=== PATIENT | male | born 1945 | race American Indian/Alaskan Native ===

== ENCOUNTER 2018-06-15 14:36 | Inpatient (IN) | payer MEDICARE ==
[2018-06-13 14:51] VITALS: BMI 32.3
[~2018-06-15 14:36] MED LIST: (Novolin R) Insulin Human Regular 100 units/ml vial SC SCH; Dextrose 50% SYRINGE Inj (50 ml) IV PRN; Glucagon Recombinant 1 mg Inj IM PRN
--- NOTE | 2018-06-19 14:55 | CP.PCM.HP ---
<Ramona Rand - Last Filed: 06/19/18 17:36> History of Present Illness - History of Present Illness History of Present Illness: History and Physical - Hospitalist Service Patient is a 72 year old male with past medical history of ESRD on HD MWF, diabetes mellitus, hypertension who presented to the hospital for admission from [facility] for dialysis placement. Patient was admitted to [facility] on June 10 for altered mental status in the setting of uremia, hypertensive urgency and hyperkalemia. Patient also was found to have a lacunar stroke. Patient was started on HD during his admission and will need hemodialysis placement. Currently he is doing well, offers no complaints at this time. Denies headaches, dizziness, cp, palpitations, sob, abdominal pain, urinary symptoms, changes in bowel habits. PMD: Dr Renny Parker ([phone]) Allergies: NKDA Medications: ASA 81mg, Lipitor 40mg PO HS, Calcitrol 0.25mcg daily, Calcium carbonate 500mg TID, Carvedilol 25mg PO BID, Lantus 6 units HS, Norvasc 10mg Medical History: ESRD on HD, CVA, Diabetes Mellitus, Prostate cancer s/p radiation, hypertension Surgical History: Left AVF placement in 2016 Social History: Denies alcohol, tobacco, drug use Family History: Diabetes Mellitus Present on Admission - Present on Admission Any Indicators Present on Admission: No Past Patient History - Past Medical History & Family History Past Medical History?: Yes - Past Social History Smoking Status: Former Smoker - CARDIAC Hx Cardiac Disorders: Yes Hx Hypertension: Yes - PULMONARY Hx Respiratory Disorders: No - NEUROLOGICAL Hx Neurological Disorder: No - HEENT Hx HEENT Problems: Yes Other/Comment: HX: LASER SURGERY BILAT. - RENAL Hx Chronic Kidney Disease: Yes Hx Renal Failure: Yes - ENDOCRINE/METABOLIC Hx Endocrine Disorders: Yes Hx Diabetes Mellitus Type 2: Yes - HEMATOLOGICAL/ONCOLOGICAL Hx Blood Disorders: Yes Hx Cancer: Yes (PROSTATE -RADIATION TX. DONE) - INTEGUMENTARY Hx Dermatological Problems: No - MUSCULOSKELETAL/RHEUMATOLOGICAL Hx Musculoskeletal Disorders: No - GASTROINTESTINAL Hx Gastrointestinal Disorders: No - GENITOURINARY/GYNECOLOGICAL Hx Genitourinary Disorders: Yes Hx Prostate Cancer: Yes Hx Prostate Problems: Yes - PSYCHIATRIC Hx Psychophysiologic Disorder: No - SURGICAL HISTORY Hx Surgeries: Yes Hx Eye Surgery: Yes (LASER BILAT.) - ANESTHESIA Hx Anesthesia: Yes Hx Anesthesia Reactions: No Hx Malignant Hyperthermia: No Meds Allergies/Adverse Reactions: Allergies Allergy/AdvReac Type Severity Reaction Status Date / Time No Known Allergies Allergy Verified 01/20/16 09:50 Physical Exam - Constitutional Appears: Well, Non-toxic, Toxic - Head Exam Head Exam: ATRAUMATIC, NORMAL INSPECTION - Eye Exam Eye Exam: EOMI, Normal appearance Pupil Exam: NORMAL ACCOMODATION - ENT Exam ENT Exam: Mucous Membranes Moist - Respiratory Exam Respiratory Exam: Clear to Auscultation Bilateral, NORMAL BREATHING PATTERN. absent: Rales, Rhonchi, Wheezes - Cardiovascular Exam Cardiovascular Exam: REGULAR RHYTHM, +S1, +S2 - GI/Abdominal Exam GI & Abdominal Exam: Normal Bowel Sounds, Soft. absent: Distended, Guarding, Rebound, Rigid, Tenderness - Extremities Exam Extremities exam: Positive for: pedal pulses present. Negative for: calf tenderness Additional comments: Lower extremities: No clubbing, cyanosis, edema; pedal pulses intact bilaterally +Left AVF with positive thrill and bruit, sensation intact throughout, distal pulses intact - Neurological Exam Neurological exam: Alert, Oriented x3 - Psychiatric Exam Psychiatric exam: Normal Affect, Normal Mood - Skin Skin Exam: Dry, Normal Color, Warm Assessment & Plan - Assessment and Plan (Free Text) Assessment: A/P: Patient is a 72 year old male with past medical history of diabetes mellitus, ESRD on HD MWF, hypertension who was transferred from [facility] for dialysis placement. ESRD on HD -Stable, afebrile -Patient to resume HD on MWF schedule -Nephrology on consult, Dr Tatum, jonas appreciated -Renal diet -Continue calcitrol 0.25mcg PO daily -Calcium carbonate 500mg PO TID -Measure daily weights, monitor intake/output -Renally dose medications Acute CVA -Patient found to have small lacunar infarct involving the left thalamic pulvinar nucleus seen on MRI -TPA was not given due to unknown last known normal -Echo showed EF 60% and LVH -Continue ASA 81mg PO daily, Lipitor 40mg PO HS -Physical Therapy ordered -Out of bed with assistance -Neuro checks q4H Diabetes Mellitus, Type 2 -Patient currently on Lantus 6 units HS -Patient was previously on Glipizide at home which was stopped -Low Insulin sliding scale -Hypoglycemic protocol -Monitor accuchecks ACHS Hypertension -Carvedilol 25mg PO BID -Continue Norvasc 10mg PO daily Anemia -Last hgb was 7.8, asymptomatic -S/P IV iron infusion -Monitor serial CBCs GI/DVT ppx: -No GI ppx indicated at this time -Heparin 5000 SC Q12H If any questions regarding admission on [place], discharge papers are in patient chart Plan discussed with Ramona Mario DO PGY-2 <Victorina Rob - Last Filed: 06/19/18 18:23> Results - Vital Signs Recent Vital Signs: Last Vital Signs Temp Pulse Resp BP 129/77 06/19/18 18:08 Pulse Ox - Labs Labs: Laboratory Results - last 24 hr 06/19/18 16:39 POC Glucose (mg/dL) 229 H Attending/Attestation - Attestation I have personally seen and examined this patient.: Yes I have fully participated in the care of the patient.: Yes I have reviewed all pertinent clinical information: Yes Notes (Text): Seen and examined in his room 350. Spoke to the patient and his at bedside Denies pain,no nausea,no vomiting. Patient will be seen by DR Tatum's group for dialysis continue his meds coreg,asprin,Norvasc,calcitriol,Calcium carbonate ,lantus,Crestor and hep sq PT evaluation assessment and the plan discussed with the resident and I agree with the documentation
[2018-06-19] MEDS ORDERED: Dextrose 50% SYRINGE Inj (50 ml) IV PRN (15:14)
[2018-06-19] MEDS ORDERED: Glucagon Recombinant 1 mg Inj IM PRN (15:14)
[2018-06-19] MEDS: (Novolin R) Insulin Human Regular 100 units/ml vial SC SCH ×2 (17:00→21:34)
[2018-06-19] MEDS: (Lantus) Insulin Glargine, Recombinant SC SCH (22:00)
[2018-06-20 06:50] LABS: BASO # 0.1 K/uL (0.0-0.2); BASO % 1.7 % (0.0-2.0); EOS # 0.1 K/uL (0.0-0.7); HEMOGLOBIN 7.8 g/dL (12.0-18.0); LYMPH # 0.5 K/uL (1.0-4.3); MEAN CELL VOLUME 91.1 fL (80.0-94.0); MEAN CORPUSCULAR HEMOGLOBIN 30.5 pg (27.0-31.0); MEAN CORPUSCULAR HGB CONC 33.5 g/dL (33.0-37.0); MONO # 0.5 K/uL (0.0-0.8); MONO % 13.1 % (0.0-10.0); NEUT % 71.2 % (50.0-75.0); NRBC % 0.2 % (0.0-2.0); RBC 2.55 Mil/uL (4.40-5.90); RED CELL DISTRIBUTION WIDTH 15.8 % (11.5-14.5); WHITE BLOOD COUNT 4.2 K/uL (4.8-10.8)
[2018-06-20 07:14] LABS: ALB/GLOB RATIO 1.2 (1.0-2.1); ALBUMIN 3.4 g/dL (3.5-5.0); CALCIUM 8.1 mg/dl (8.6-10.4)
[2018-06-20] MEDS: (Novolin R) Insulin Human Regular 100 units/ml vial SC SCH ×4 (07:32→23:22)
--- NOTE | 2018-06-20 13:00 | CP.PCM.CON ---
History of Present Illness - History of Present Illness History of Present Illness: Patient is a 72 year old male with past medical history of ESRD on HD MWF, diabetes mellitus, hypertension who presented to the hospital for admission from [facility] for dialysis placement. Patient was adm itted to [facility] on June 10 for altered mental status in the setting of uremia, hypertensive urgency and hyperkalemia. Patient also was found to have a lacunar stroke. Patient was started on HD during his admission and will need hemodialysis placement. Currently he is doing well, offers no complaints at this time. Denies headaches, dizziness, cp, palpitations, sob, abdominal pain, urinary symptoms, changes in bowel habits. PMD: Dr Renny Parker ([phone]) Allergies: NKDA Medications: ASA 81mg, Lipitor 40mg PO HS, Calcitrol 0.25mcg daily, Calcium carbonate 500mg TID, Carvedilol 25mg PO BID, Lantus 6 units HS, Norvasc 10mg Medical History: ESRD on HD, CVA, Diabetes Mellitus, Prostate cancer s/p radiation, hypertension Surgical History: Left AVF placement in 2016 Social History: Denies alcohol, tobacco, drug use Family History: Diabetes Mellitus; no CKD Review of Systems - Constitutional Constitutional: Fatigue, Weakness - EENT Eyes: Blurred Vision Ears: absent: As Per HPI, Decreased Hearing, Ear Discharge, Ear Pain, Tinnitus, Abnormal Hearing, Disequilibrium, Dizziness, Other Nose/Mouth/Throat: absent: As Per HPI, Epistaxis, Nasal Congestion, Nasal Discharge, Nasal Obstruction, Nasal Trauma, Nose Pain, Post Nasal Drip, Sinus Pain, Sinus Pressure, Bleeding Gums, Change in Voice, Dental Pain, Dry Mouth, Dysphagia, Halitosis, Hoarsness, Lip Swelling, Mouth Lesions, Mouth Pain, Odynophagia, Sore Throat, Throat Swelling, Tongue Swelling, Facial Pain, Neck Pain, Neck Mass, Other - Cardiovascular Cardiovascular: Dyspnea on Exertion - Respiratory Respiratory: absent: As Per HPI, Cough, Dyspnea, Hemoptysis, Dyspnea on Exert ion, Wheezing, Snoring, Stridor, Pain on Inspiration, Chest Congestion, Excessive Mucous Production, Change in Mucous Color, Pain with Coughing, Other - Gastrointestinal Gastrointestinal: Nausea - Genitourinary Genitourinary: As Per HPI - Neurological Neurological: Weakness Past Patient History - Past Medical History & Family History Past Medical History?: Yes Past Family History: Reviewed and not pertinent - Past Social History Smoking Status: Former Smoker Chewing Tobacco Use: No Cigar Use: No Alcohol: None Drugs: Denies Home Situation {Lives}: With Family - CARDIAC Hx Cardiac Disorders: Yes Hx Hypertension: Yes - PULMONARY Hx Respiratory Disorders: No - NEUROLOGICAL Hx Neurological Disorder: No - HEENT Hx HEENT Problems: Yes Other/Comment: HX: LASER SURGERY BILAT. - RENAL Hx Renal Failure: Yes - ENDOCRINE/METABOLIC Hx Diabetes Mellitus Type 2: Yes - HEMATOLOGICAL/ONCOLOGICAL Hx Blood Disorders: Yes Hx Cancer: Yes (PROSTATE -RADIATION TX. DONE) - INTEGUMENTARY Hx Dermatological Problems: No - MUSCULOSKELETAL/RHEUMATOLOGICAL Hx Musculoskeletal Disorders: No Hx Falls: No - GASTROINTESTINAL Hx Gastrointestinal Disorders: No - GENITOURINARY/GYNECOLOGICAL Hx Genitourinary Disorders: Yes Hx Prostate Cancer: Yes Hx Prostate Problems: Yes - PSYCHIATRIC Hx Psychophysiologic Disorder: No Hx Substance Use: No - SURGICAL HISTORY Hx Surgeries: Yes Hx Eye Surgery: Yes (LASER BILAT.) - ANESTHESIA Hx Anesthesia: Yes Hx Anesthesia Reactions: No Hx Malignant Hyperthermia: No Has any member of the family had a problem w/ anesthesia?: No Meds Allergies/Adverse Reactions: Allergies Allergy/AdvReac Type Severity Reaction Status Date / Time No Known Allergies Allergy Verified 01/20/16 09:50 - Medications Medications: Current Medications Amlodipine Besylate (Norvasc) 10 mg PO DAILY [facility] Last Admin: 06/20/18 09:49 Dose: 10 mg Aspirin (Aspirin Chewable) 81 mg PO DAILY [facility] Last Admin: 06/20/18 09:48 Dose: 81 mg Calcitriol (Rocaltrol) 0.25 mcg PO DAILY [facility] Last Admin: 06/20/18 09:48 Dose: 0.25 mcg Calcium Carbonate (Oscal) 500 mg PO TID [facility] Last Admin: 06/20/18 09:48 Dose: 500 mg Carvedilol (Coreg) 25 mg PO BID [facility] Last Admin: 06/20/18 09:49 Dose: 25 mg Dextrose (Dextrose 50% Inj) 0 ml IV STAT PRN; Protocol PRN Reason: Hypoglycemia Protocol Dextrose (Glutose 15) 0 gm PO ONCE PRN; Protocol PRN Reason: Hypoglycemia Protocol Glucagon (Glucagen Diagnostic Kit) 0 mg IM STAT PRN; Protocol PRN Reason: Hypoglycemia Protocol Heparin Sodium (Porcine) (Heparin) 5,000 units SC Q12 [facility] Last Admin: 06/20/18 09:49 Dose: 5,000 units Dextrose (Dextrose 5% In Water 1000 Ml) 1,000 mls @ 0 mls/hr IV .Q0M PRN; Protocol PRN Reason: Hypoglycemia Protocol Influenza Virus Vaccine (Fluzone Quad [id number]) 60 mcg IM .ONCE ONE Stop: 06/22/18 10:01 Insulin Glargine (Lantus) 6 unit SC [facility] Last Admin: 06/19/18 22:00 Dose: 6 units Insulin Human Regular (Novolin R) 0 unit SC ACHS [facility]; Protocol Last Admin: 06/20/18 12:00 Dose: 2 units Pneumococcal Polyvalent Vaccine (Pneumovax 23 Vaccine) 0.5 ml IM .ONCE ONE Stop: 06/22/18 10:01 Rosuvastatin Calcium (Crestor) 5 mg PO HS [facility] Last Admin: 06/19/18 22:00 Dose: 5 mg Tamsulosin HCl (Flomax) 0.4 mg PO DAILY [facility] Last Admin: 06/20/18 09:49 Dose: 0.4 mg Physical Exam - Constitutional Appears: No Acute Distress, Chronically Ill - Head Exam Head Exam: ATRAUMATIC, NORMAL INSPECTION - Eye Exam Eye Exam: EOMI, Normal appearance - Neck Exam Neck exam: Positive for: Normal Inspection. Negative for: Tenderness - Respiratory Exam Respiratory Exam: Clear to Auscultation Bilateral, NORMAL BREATHING PATTERN - Cardiovascular Exam Cardiovascular Exam: REGULAR RHYTHM, +S1 - GI/Abdominal Exam GI & Abdominal Exam: Soft. absent: Tenderness - Extremities Exam Extremities exam: Positive for: normal inspection. Negative for: tenderness - Neurological Exam Neurological exam: Alert, Oriented x3 - Skin Skin Exam: Dry, Warm Results - Vital Signs Recent Vital Signs: Last Vital Signs Temp 97.9 F 06/20/18 08:00 Pulse 75 06/20/18 08:00 Resp 20 06/20/18 08:00 BP 146/79 06/20/18 09:49 Pulse Ox 97 06/20/18 08:00 - Labs Result Diagrams: 06/20/18 06:34 06/20/18 06:34 Labs: Laboratory Results - last 24 hr 06/19/18 06/19/18 06/20/18 16:39 21:22 06:34 WBC 4.2 L RBC 2.55 L Hgb 7.8 L D Hct 23.2 L MCV 91.1 D MCH 30.5 MCHC 33.5 RDW 15.8 H Plt Count 183 MPV 8.0 Neut % (Auto) 71.2 Lymph % (Auto) 12.0 L Donley % (Auto) 13.1 H Eos % (Auto) 2.0 Baso % (Auto) 1.7 Neut # (Auto) 3.0 Lymph # (Auto) 0.5 L Donley # (Auto) 0.5 Eos # (Auto) 0.1 Baso # (Auto) 0.1 Sodium Potassium Chloride Carbon Dioxide Anion Gap BUN Creatinine Est GFR ( Amer) Est GFR (Non-Af Amer) POC Glucose (mg/dL) 229 H 315 H Random Glucose Calcium Phosphorus Magnesium Total Bilirubin AST ALT Alkaline Phosphatase Total Protein Albumin Globulin Albumin/Globulin Ratio 06/20/18 06/20/18 06/20/18 06:34 07:11 11:24 WBC RBC Hgb Hct MCV MCH MCHC RDW Plt Count MPV Neut % (Auto) Lymph % (Auto) Donley % (Auto) Eos % (Auto) Baso % (Auto) Neut # (Auto) Lymph # (Auto) Donley # (Auto) Eos # (Auto) Baso # (Auto) Sodium 135 Potassium 5.1 Chloride 94 L Carbon Dioxide 32 H Anion Gap 14 BUN 50 H Creatinine 7.9 H* Est GFR ( Amer) 8 Est GFR (Non-Af Amer) 7 POC Glucose (mg/dL) 150 H 235 H Random Glucose 155 H D Calcium 8.1 L Phosphorus 4.1 Magnesium 2.3 Total Bilirubin 0.4 AST 25 ALT 41 Alkaline Phosphatase 33 L Total Protein 6.2 L Albumin 3.4 L Globulin 2.9 Albumin/Globulin Ratio 1.2 Assessment & Plan (1) End stage renal disease Status: Acute (2) Type 2 diabetes mellitus with diabetic nephropathy Status: Acute (3) Hypertensive chronic kidney disease with stage 5 chronic kidney disease or end stage renal disease Status: Acute (4) CVA (cerebral vascular accident) Status: Acute (5) Prostate CA Status: Acute - Assessment and Plan (Free Text) Plan: Dialysis to be scheduled Check hep panel will need HD placement
--- NOTE | 2018-06-20 13:44 | CP.PCM.PN ---
Subjective - Date & Time of Evaluation Date of Evaluation: 06/20/18 Time of Evaluation: 13:41 - Subjective Subjective: Elizabeth Claudio PGY1 Progress note for Dr. Rob Pt was examined at bedside this morning. He has no complaints. He denies heada mary, chest pain, shortness of breath, abdominal pain, nausea, vomiting, diarrhea, dysuria. Objective - Vital Signs/Intake and Output Vital Signs (last 24 hours): Temp Pulse Resp BP Pulse Ox 97.9 F 75 20 146/79 97 06/20/18 08:00 06/20/18 08:00 06/20/18 08:00 06/20/18 09:49 06/20/18 08:00 Intake and Output: 06/20/18 06/20/18 06:59 18:59 Intake Total 100 Output Total 100 Balance 0 - Medications Medications: Current Medications Amlodipine Besylate (Norvasc) 10 mg PO DAILY [facility] Last Admin: 06/20/18 09:49 Dose: 10 mg Aspirin (Aspirin Chewable) 81 mg PO DAILY [facility] Last Admin: 06/20/18 09:48 Dose: 81 mg Calcitriol (Rocaltrol) 0.25 mcg PO DAILY [facility] Last Admin: 06/20/18 09:48 Dose: 0.25 mcg Calcium Carbonate (Oscal) 500 mg PO TID [facility] Last Admin: 06/20/18 09:48 Dose: 500 mg Carvedilol (Coreg) 25 mg PO BID [facility] Last Admin: 06/20/18 09:49 Dose: 25 mg Dextrose (Dextrose 50% Inj) 0 ml IV STAT PRN; Protocol PRN Reason: Hypoglycemia Protocol Dextrose (Glutose 15) 0 gm PO ONCE PRN; Protocol PRN Reason: Hypoglycemia Protocol Epoetin Rocael (Procrit) 10,000 unit IV MWF [facility] Glucagon (Glucagen Diagnostic Kit) 0 mg IM STAT PRN; Protocol PRN Reason: Hypoglycemia Protocol Heparin Sodium (Porcine) (Heparin) 5,000 units SC Q12 [facility] Last Admin: 06/20/18 09:49 Dose: 5,000 units Dextrose (Dextrose 5% In Water 1000 Ml) 1,000 mls @ 0 mls/hr IV .Q0M PRN; Protocol PRN Reason: Hypoglycemia Protocol Influenza Virus Vaccine (Fluzone Quad [id number]) 60 mcg IM .ONCE ONE Stop: 06/22/18 10:01 Insulin Glargine (Lantus) 6 unit SC [facility] Last Admin: 06/19/18 22:00 Dose: 6 units Insulin Human Regular (Novolin R) 0 unit SC [facility]; Protocol Last Admin: 06/20/18 12:00 Dose: 2 units Pneumococcal Polyvalent Vaccine (Pneumovax 23 Vaccine) 0.5 ml IM .ONCE ONE Stop: 06/22/18 10:01 Rosuvastatin Calcium (Crestor) 5 mg PO [facility] Last Admin: 06/19/18 22:00 Dose: 5 mg Tamsulosin HCl (Flomax) 0.4 mg PO DAILY [facility] Last Admin: 06/20/18 09:49 Dose: 0.4 mg - Labs Labs: 06/20/18 06:34 06/20/18 06:34 - Additional Findings Additional findings: - Constitutional Appears: Well, Non-toxic, Toxic - Head Exam Head Exam: ATRAUMATIC, NORMAL INSPECTION - Eye Exam Eye Exam: EOMI, Normal appearance Pupil Exam: NORMAL ACCOMODATION - ENT Exam ENT Exam: Mucous Membranes Moist - Respiratory Exam Respiratory Exam: Clear to Auscultation Bilateral, NORMAL BREATHING PATTERN. absent: Rales, Rhonchi, Wheezes - Cardiovascular Exam Cardiovascular Exam: REGULAR RHYTHM, +S1, +S2 - GI/Abdominal Exam GI & Abdominal Exam: Normal Bowel Sounds, Soft. absent: Distended, Guarding, Re bound, Rigid, Tenderness - Extremities Exam Extremities exam: Positive for: pedal pulses present. Negative for: calf tenderness Additional comments: b/l LUE: No clubbing, cyanosis, edema LUE: L AVF with positive thrill and bruit - Neurological Exam Neurological exam: Alert, Oriented x3 - Psychiatric Exam Psychiatric exam: Normal Affect, Normal Mood - Skin Skin Exam: Dry, Normal Color, Warm Assessment and Plan - Assessment and Plan (Free Text) Assessment: 72yo M with PMH of diabetes mellitus, ESRD on HD MWF, hypertension who was transferred from [facility] for dialysis placement. Pt consented for HD. Plan: ESRD on HD - Patient to resume HD on MWF schedule, consented - calcitrol 0.25mcg PO daily - Calcium carbonate 500mg PO TID - I/Os, daily weights - awaiting dialysis placement - Nephrology consulted, [facility] Acute CVA - small lacunar infarct involving the left thalamic pulvinar nucleus seen on MRI - TPA was not given due to unknown last known normal - Echo: EF 60% and LVH - ASA 81mg PO daily - Crestor 5mg PO HS - Out of bed with assistance - Neuro checks q4H - PT DM2 - Lantus 6 units HS - Low Insulin sliding scale - Hypoglycemic protocol - accuchecks ACHS HTN - Carvedilol 25mg PO BID - Norvasc 10mg PO daily Anemia - Hb 7.8, asymptomatic - S/P IV iron infusion - continue to monitor PPX: GI: not indicated at this time DVT: Heparin 5000 SC Q12H Renal Diet Dispo: consented for HD, to receive session today. Awaiting outpatient HD placement. Plan discussed with Dr Rob
[2018-06-20 16:22] LABS: HEPATITIS B SURFACE AG Negative (NEGATIVE)
[2018-06-20 16:28] LABS: HEPATITIS B CORE AB NEGATIVE (NEGATIVE)
[2018-06-20] MEDS: Epoetin Alfa 10,000 unit/ml Dialysis IV SCH (16:37)
[2018-06-20] MEDS: (Lantus) Insulin Glargine, Recombinant SC SCH (21:32)
--- NOTE | 2018-06-21 06:14 | CP.PCM.PN ---
Subjective - Date & Time of Evaluation Date of Evaluation: 06/21/18 Time of Evaluation: 06:45 - Subjective Subjective: PGY-1 Medicine Progress Note for Dr. Rob Patient was seen and examined with at bedside in no acute distress. Nurse reports no overnight events. Patient has no new complaints. Feels as though his speech is slowly improving. Denies chest pain, palpitations, shortness of breath, abdominal pain, nausea, vomiting, constipation, diarrhea. Objective - Vital Signs/Intake and Output Vital Signs (last 24 hours): Temp Pulse Resp BP Pulse Ox 98.3 F 80 20 147/82 95 06/20/18 23:05 06/20/18 23:05 06/20/18 23:05 06/20/18 23:05 06/20/18 23:05 Intake and Output: 06/20/18 06/21/18 18:59 06:59 Intake Total 100 Output Total 100 Balance 0 - Medications Medications: Current Medications Amlodipine Besylate (Norvasc) 10 mg PO DAILY [facility] Last Admin: 06/20/18 09:49 Dose: 10 mg Aspirin (Aspirin Chewable) 81 mg PO DAILY [facility] Last Admin: 06/20/18 09:48 Dose: 81 mg Calcitriol (Rocaltrol) 0.25 mcg PO DAILY [facility] Last Admin: 06/20/18 09:48 Dose: 0.25 mcg Calcium Carbonate (Oscal) 500 mg PO TID [facility] Last Admin: 06/20/18 19:44 Dose: 500 mg Carvedilol (Coreg) 25 mg PO BID [facility] Last Admin: 06/20/18 19:44 Dose: 25 mg Dextrose (Dextrose 50% Inj) 0 ml IV STAT PRN; Protocol PRN Reason: Hypoglycemia Protocol Dextrose (Glutose 15) 0 gm PO ONCE PRN; Protocol PRN Reason: Hypoglycemia Protocol Epoetin Rcoael (Procrit) 10,000 unit IV MWF [facility] Last Admin: 06/20/18 16:37 Dose: 10,000 unit Glucagon (Glucagen Diagnostic Kit) 0 mg IM STAT PRN; Protocol PRN Reason: Hypoglycemia Protocol Heparin Sodium (Porcine) (Heparin) 5,000 units SC Q12 [facility] Last Admin: 06/20/18 21:32 Dose: 5,000 units Dextrose (Dextrose 5% In Water 1000 Ml) 1,000 mls @ 0 mls/hr IV .Q0M PRN; Protocol PRN Reason: Hypoglycemia Protocol Influenza Virus Vaccine (Fluzone Quad [id number]) 60 mcg IM .ONCE ONE Stop: 06/22/18 10:01 Insulin Glargine (Lantus) 6 unit SC [facility] Last Admin: 06/20/18 21:32 Dose: 6 units Insulin Human Regular (Novolin R) 0 unit SC [facility]; Protocol Last Admin: 06/20/18 23:22 Dose: 2 units Pneumococcal Polyvalent Vaccine (Pneumovax 23 Vaccine) 0.5 ml IM .ONCE ONE Stop: 06/22/18 10:01 Rosuvastatin Calcium (Crestor) 5 mg PO [facility] Last Admin: 06/20/18 21:33 Dose: 5 mg Tamsulosin HCl (Flomax) 0.4 mg PO DAILY [facility] Last Admin: 06/20/18 09:49 Dose: 0.4 mg - Labs Labs: 06/20/18 06:34 06/20/18 06:34 - Constitutional Appears: Well, Non-toxic, No Acute Distress - Head Exam Head Exam: ATRAUMATIC, NORMOCEPHALIC - Eye Exam Eye Exam: EOMI, Normal appearance, PERRL Pupil Exam: NORMAL ACCOMODATION - ENT Exam ENT Exam: Mucous Membranes Moist - Respiratory Exam Respiratory Exam: Clear to Ausculation Bilateral, NORMAL BREATHING PATTERN. absent: Rales, Rhonchi, Wheezes - Cardiovascular Exam Cardiovascular Exam: REGULAR RHYTHM, +S1, +S2. absent: Gallop, Rubs, Murmur - GI/Abdominal Exam GI & Abdominal Exam: Soft, Normal Bowel Sounds. absent: Distended, Guarding, Tenderness - Extremities Exam Extremities Exam: Normal Capillary Refill. absent: Calf Tenderness Additional comments: peripheral pulses palpable bilaterally (radial, PT) AVF in L arm. Palpable thrill and audible bruit - Neurological Exam Neurological Exam: Alert, Awake, Oriented x3 - Psychiatric Exam Psychiatric exam: Normal Affect, Normal Mood - Skin Skin Exam: Normal Color, Warm Assessment and Plan - Assessment and Plan (Free Text) Assessment: 72yo M with PMH of diabetes mellitus, ESRD on HD MWF, hypertension who was transferred from [facility] for dialysis placement. Pt consented for HD. Plan: ESRD on HD - calcitrol 0.25mcg PO daily - Calcium carbonate 500mg PO TID - I/Os, daily weights - awaiting dialysis placement - Nephrology consulted, Dr Tatum- recs appreciated - restarted on MWF schedule Acute CVA - small lacunar infarct involving the left thalamic pulvinar nucleus seen on MRI - TPA was not given due to unknown last known normal - Echo: EF 60% and LVH - ASA 81mg PO daily - Crestor 5mg PO HS - Out of bed with assistance - Neuro checks q4H - PT DM2 - Lantus 6 units HS - Low Insulin sliding scale - Hypoglycemic protocol - accuchecks ACHS HTN - Carvedilol 25mg PO BID - Norvasc 10mg PO daily Anemia - Hb 7.8, asymptomatic - S/P IV iron infusion - continue to monitor PPX: GI: not indicated at this time DVT: Heparin 5000 SC Q12H Renal Diet Dispo: Awaiting outpatient HD placement.
[2018-06-21 07:13] LABS: BASO % 0.9 % (0.0-2.0); EOS # 0.1 K/uL (0.0-0.7); EOS % 1.8 % (0.0-4.0); HEMOGLOBIN 7.7 g/dL (12.0-18.0); LYMPH # 0.5 K/uL (1.0-4.3); LYMPH % 11.5 % (20.0-40.0); MEAN CELL VOLUME 91.7 fL (80.0-94.0); MEAN CORPUSCULAR HEMOGLOBIN 29.9 pg (27.0-31.0); MEAN CORPUSCULAR HGB CONC 32.6 g/dL (33.0-37.0); MEAN PLATELET VOLUME 7.9 fL (7.2-11.7); MONO # 0.6 K/uL (0.0-0.8); MONO % 13.8 % (0.0-10.0); NRBC % 0.1 % (0.0-2.0); RBC 2.59 Mil/uL (4.40-5.90); RED CELL DISTRIBUTION WIDTH 16.4 % (11.5-14.5); WHITE BLOOD COUNT 4.2 K/uL (4.8-10.8)
[2018-06-21 07:31] LABS: ALB/GLOB RATIO 1.2 (1.0-2.1); ALBUMIN 3.2 g/dL (3.5-5.0); CALCIUM 8.5 mg/dl (8.6-10.4)
[2018-06-21] MEDS: (Novolin R) Insulin Human Regular 100 units/ml vial SC SCH ×4 (07:39→21:33)
--- NOTE | 2018-06-21 09:51 | CP.PCM.PN ---
Subjective - Date & Time of Evaluation Date of Evaluation: 06/21/18 Time of Evaluation: 09:48 - Subjective Subjective: stable dialysis 06/20 HTN controlled TSat=7%; still anemic Ca , phos levels acceptable will need outpt dialysis placement- explained to patient Objective - Vital Signs/Intake and Output Vital Signs (last 24 hours): Temp Pulse Resp BP Pulse Ox 98.1 F 77 20 151/74 H 98 06/21/18 08:10 06/21/18 08:10 06/21/18 08:10 06/21/18 09:16 06/21/18 08:10 Intake and Output: 06/21/18 06/21/18 06:59 18:59 Intake Total 300 Balance 300 - Medications Medications: Current Medications Amlodipine Besylate (Norvasc) 10 mg PO DAILY [facility] Last Admin: 06/21/18 09:16 Dose: 10 mg Aspirin (Aspirin Chewable) 81 mg PO DAILY [facility] Last Admin: 06/21/18 09:16 Dose: 81 mg Calcitriol (Rocaltrol) 0.25 mcg PO DAILY [facility] Last Admin: 06/21/18 09:16 Dose: 0.25 mcg Calcium Carbonate (Oscal) 500 mg PO TID [facility] Last Admin: 06/21/18 09:16 Dose: 500 mg Carvedilol (Coreg) 25 mg PO BID [facility] Last Admin: 06/21/18 09:16 Dose: 25 mg Dextrose (Dextrose 50% Inj) 0 ml IV STAT PRN; Protocol PRN Reason: Hypoglycemia Protocol Dextrose (Glutose 15) 0 gm PO ONCE PRN; Protocol PRN Reason: Hypoglycemia Protocol Epoetin Rocael (Procrit) 10,000 unit IV MWF [facility] Last Admin: 06/20/18 16:37 Dose: 10,000 unit Glucagon (Glucagen Diagnostic Kit) 0 mg IM STAT PRN; Protocol PRN Reason: Hypoglycemia Protocol Heparin Sodium (Porcine) (Heparin) 5,000 units SC Q12 [facility] Last Admin: 06/21/18 09:16 Dose: 5,000 units Dextrose (Dextrose 5% In Water 1000 Ml) 1,000 mls @ 0 mls/hr IV .Q0M PRN; Protocol PRN Reason: Hypoglycemia Protocol Influenza Virus Vaccine (Fluzone Quad [id number]) 60 mcg IM .ONCE ONE Stop: 06/22/18 10:01 Insulin Glargine (Lantus) 6 unit SC [facility] Last Admin: 06/20/18 21:32 Dose: 6 units Insulin Human Regular (Novolin R) 0 unit SC [facility]; Protocol Last Admin: 06/21/18 07:39 Dose: Not Given Pneumococcal Polyvalent Vaccine (Pneumovax 23 Vaccine) 0.5 ml IM .ONCE ONE Stop: 06/22/18 10:01 Rosuvastatin Calcium (Crestor) 5 mg PO [facility] Last Admin: 06/20/18 21:33 Dose: 5 mg Tamsulosin HCl (Flomax) 0.4 mg PO DAILY [facility] Last Admin: 06/21/18 09:16 Dose: 0.4 mg - Labs Labs: 06/21/18 06:59 06/21/18 06:59 - Constitutional Appears: No Acute Distress, Chronically Ill - Head Exam Head Exam: ATRAUMATIC, NORMAL INSPECTION - Eye Exam Eye Exam: EOMI, Normal appearance - Neck Exam Neck Exam: Normal Inspection. absent: Tenderness - Respiratory Exam Respiratory Exam: Clear to Ausculation Bilateral, NORMAL BREATHING PATTERN - Cardiovascular Exam Cardiovascular Exam: REGULAR RHYTHM, +S1 - GI/Abdominal Exam GI & Abdominal Exam: Soft. absent: Tenderness - Extremities Exam Extremities Exam: Normal Inspection. absent: Tenderness - Neurological Exam Neurological Exam: Awake, CN II-XII Intact - Skin Skin Exam: Dry, Warm Assessment and Plan (1) End stage renal disease Status: Acute (2) Type 2 diabetes mellitus with diabetic nephropathy Status: Acute (3) Hypertensive chronic kidney disease with stage 5 chronic kidney disease or end stage renal disease Status: Acute (4) CVA (cerebral vascular accident) Status: Acute (5) Prostate CA Status: Acute - Assessment and Plan (Free Text) Plan: Dialysis MWF Change Ca to phoslo Re-add IV Fe Outpt HD placement
[2018-06-21] MEDS ORDERED: Ferric Sodium Gluconat Complex 62.5 mg/5 ml Vial IVPB SCH (10:00)
[2018-06-21] MEDS ORDERED: Ferric Sodium Gluconat Complex 125 MG in Sodium Chloride 0.9% 100 ML IVPB ONE (11:00)
[2018-06-21] MEDS: Ferric Sodium Gluconat Complex 125 MG in Sodium Chloride 0.9% 100 ML IVPB SCH (11:02)
[2018-06-21] MEDS ORDERED: POLYETHYLENE GLYCOL 3350 17 GM/Dose PACKET PO ONE (16:00)
[2018-06-21] MEDS: (Lantus) Insulin Glargine, Recombinant SC SCH (21:29)
--- NOTE | 2018-06-22 03:03 | CP.PCM.PN ---
<Luz Marina Baker Y - Last Filed: 06/22/18 03:01> Subjective - Date & Time of Evaluation Date of Evaluation: 06/22/18 Time of Evaluation: 06:45 - Subjective Subjective: PGY-1 Medicine Progress Note for Dr. Rob Patient was seen and examined with at bedside in no acute distress. Nurse reports no overnight events. Patient has no new complaints. Feels as though his speech is slowly improving. Denies chest pain, palpitations, shortness of breath, abdominal pain, nausea, vomiting, constipation, diarrhea. Objective - Vital Signs/Intake and Output Vital Signs (last 24 hours): Temp Pulse Resp BP Pulse Ox 98.4 F 61 20 130/60 95 06/21/18 23:12 06/21/18 23:12 06/21/18 23:12 06/21/18 23:12 06/21/18 23:12 Intake and Output: 06/21/18 06/22/18 18:59 06:59 Intake Total 300 Balance 300 - Medications Medications: Current Medications Amlodipine Besylate (Norvasc) 10 mg PO DAILY [facility] Last Admin: 06/21/18 09:16 Dose: 10 mg Aspirin (Aspirin Chewable) 81 mg PO DAILY [facility] Last Admin: 06/21/18 09:16 Dose: 81 mg Calcitriol (Rocaltrol) 0.25 mcg PO DAILY [facility] Last Admin: 06/21/18 09:16 Dose: 0.25 mcg Calcium Acetate (Phoslo) 667 mg PO TID [facility] Last Admin: 06/21/18 17:16 Dose: 667 mg Carvedilol (Coreg) 25 mg PO BID [facility] Last Admin: 06/21/18 17:16 Dose: 25 mg Dextrose (Dextrose 50% Inj) 0 ml IV STAT PRN; Protocol PRN Reason: Hypoglycemia Protocol Dextrose (Glutose 15) 0 gm PO ONCE PRN; Protocol PRN Reason: Hypoglycemia Protocol Epoetin Rocael (Procrit) 10,000 unit IV MWF [facility] Last Admin: 06/20/18 16:37 Dose: 10,000 unit Glucagon (Glucagen Diagnostic Kit) 0 mg IM STAT PRN; Protocol PRN Reason: Hypoglycemia Protocol Heparin Sodium (Porcine) (Heparin) 5,000 units SC Q12 [facility] Last Admin: 06/21/18 21:23 Dose: 5,000 units Dextrose (Dextrose 5% In Water 1000 Ml) 1,000 mls @ 0 mls/hr IV .Q0M PRN; Protocol PRN Reason: Hypoglycemia Protocol Ferric Sodium Gluconate Complex 125 mg/ Sodium Chloride 110 mls @ 100 mls/hr IVPB Q24H [facility] Stop: 06/29/18 11:01 Last Admin: 06/21/18 11:02 Dose: Not Given Influenza Virus Vaccine (Fluzone Quad [id number]) 60 mcg IM .ONCE ONE Stop: 06/22/18 10:01 Insulin Glargine (Lantus) [address] [facility] Last Admin: 06/21/18 21:29 Dose: 6 units Insulin Human Regular (Novolin R) 0 unit SC [facility]; Protocol Last Admin: 06/21/18 21:33 Dose: Not Given Pneumococcal Polyvalent Vaccine (Pneumovax 23 Vaccine) 0.5 ml IM .ONCE ONE Stop: 06/22/18 10:01 Rosuvastatin Calcium (Crestor) 5 mg PO HS [facility] Last Admin: 06/21/18 21:23 Dose: 5 mg Tamsulosin HCl (Flomax) 0.4 mg PO DAILY [facility] Last Admin: 06/21/18 09:16 Dose: 0.4 mg - Labs Labs: 06/21/18 06:59 06/21/18 06:59 - Constitutional Appears: Well, Non-toxic, No Acute Distress - Head Exam Head Exam: ATRAUMATIC, NORMOCEPHALIC - Eye Exam Eye Exam: EOMI, Normal appearance, PERRL Pupil Exam: NORMAL ACCOMODATION - ENT Exam ENT Exam: Mucous Membranes Moist - Respiratory Exam Respiratory Exam: Clear to Ausculation Bilateral, NORMAL BREATHING PATTERN. absent: Rales, Rhonchi, Wheezes - Cardiovascular Exam Cardiovascular Exam: REGULAR RHYTHM, +S1, +S2. absent: Gallop, Rubs, Murmur - GI/Abdominal Exam GI & Abdominal Exam: Soft, Normal Bowel Sounds. absent: Tenderness - Extremities Exam Extremities Exam: Normal Capillary Refill Additional comments: peripheral pulses palpable bilaterally (radial, PT) AVF in L arm. Palpable thrill and audible bruit - Neurological Exam Neurological Exam: Alert, Awake, Oriented x3 - Psychiatric Exam Psychiatric exam: Normal Affect, Normal Mood - Skin Skin Exam: Normal Color, Warm Assessment and Plan - Assessment and Plan (Free Text) Assessment: 72yo M with PMH of diabetes mellitus, ESRD on HD MWF, hypertension who was transferred from [facility] for dialysis placement. Pt consented for HD. Plan: ESRD on HD - calcitrol 0.25mcg PO daily - Calcium carbonate 500mg PO TID - Ferric Sodium 125mg IVPB daily - I/Os, daily weights - awaiting dialysis placement - Nephrology consulted, Dr Tatum- recjaky appreciated - restarted on MWF schedule - EPO with dialysis Acute CVA - small lacunar infarct involving the left thalamic pulvinar nucleus seen on MRI - TPA was not given due to unknown last known normal - Echo: EF 60% and LVH - ASA 81mg PO daily - Crestor 5mg PO HS - Out of bed with assistance - Neuro checks q4H - PT DM2 - Lantus 6 units HS - Low Insulin sliding scale - Hypoglycemic protocol - accuchecks ACHS HTN - Carvedilol 25mg PO BID - Norvasc 10mg PO daily Anemia - Hb 7.8, asymptomatic - S/P IV iron infusion - continue to monitor PPX: GI: not indicated at this time DVT: Heparin 5000 SC Q12H Renal Diet Dispo: Awaiting outpatient HD placement. <Hollis Julien H - Last Filed: 06/22/18 13:40> Objective - Vital Signs/Intake and Output Vital Signs (last 24 hours): Temp Pulse Resp BP Pulse Ox 98.3 F 74 20 156/83 H 95 06/22/18 07:52 06/22/18 07:52 06/22/18 07:52 06/22/18 09:36 06/22/18 07:52 Intake and Output: 06/22/18 06/22/18 06:59 18:59 Intake Total 100 Balance 100 - Medications Medications: Current Medications Amlodipine Besylate (Norvasc) 10 mg PO DAILY [facility] Last Admin: 06/22/18 09:36 Dose: 10 mg Aspirin (Aspirin Chewable) 81 mg PO DAILY [facility] Last Admin: 06/22/18 09:36 Dose: 81 mg Calcitriol (Rocaltrol) 0.25 mcg PO DAILY [facility] Last Admin: 06/22/18 10:05 Dose: 0.25 mcg Calcium Acetate (Phoslo) 667 mg PO TID [facility] Last Admin: 06/22/18 13:14 Dose: 667 mg Carvedilol (Coreg) 25 mg PO BID [facility] Last Admin: 06/22/18 09:36 Dose: 25 mg Dextrose (Dextrose 50% Inj) 0 ml IV STAT PRN; Protocol PRN Reason: Hypoglycemia Protocol Dextrose (Glutose 15) 0 gm PO ONCE PRN; Protocol PRN Reason: Hypoglycemia Protocol Epoetin Rocael (Procrit) 10,000 unit IV MWF [facility] Last Admin: 06/20/18 16:37 Dose: 10,000 unit Glucagon (Glucagen Diagnostic Kit) 0 mg IM STAT PRN; Protocol PRN Reason: Hypoglycemia Protocol Heparin Sodium (Porcine) (Heparin) 5,000 units SC Q12 [facility] Last Admin: 06/22/18 09:36 Dose: 5,000 units Dextrose (Dextrose 5% In Water 1000 Ml) 1,000 mls @ 0 mls/hr IV .Q0M PRN; Protocol PRN Reason: Hypoglycemia Protocol Ferric Sodium Gluconate Complex 125 mg/ Sodium Chloride 110 mls @ 100 mls/hr IVPB Q24H [facility] Stop: 06/29/18 11:01 Last Admin: 06/22/18 10:40 Dose: 100 mls/hr Insulin Glargine (Lantus) 6 unit SC HS [facility] Last Admin: 06/21/18 21:29 Dose: 6 units Insulin Human Regular (Novolin R) 0 unit SC [facility]; Protocol Last Admin: 06/22/18 12:20 Dose: 3 units Rosuvastatin Calcium (Crestor) 5 mg PO HS [facility] Last Admin: 06/21/18 21:23 Dose: 5 mg Tamsulosin HCl (Flomax) 0.4 mg PO DAILY [facility] Last Admin: 06/22/18 09:36 Dose: 0.4 mg - Labs Labs: 06/22/18 07:49 06/22/18 07:49 Attending/Attestation - Attestation I have personally seen and examined this patient.: Yes I have fully participated in the care of the patient.: Yes I have reviewed all pertinent clinical information, including history, physical exam and plan: Yes Notes (Text): Medical attending: Patient was seen and examined by me. Agree with the above note by the resident He reports feeling ok - his Hgb is anemia 7.2 this morning - he denied dizzy, denied tachycardia, denied shortness of breath however I did explain to them that he maybe getting a PRBC possibly tomorrow during HD. Family member present at bedside, his . We talked. I filled out the FMLA for her. Currently pending HD placement - also because of weakness he may need to go to a subacute rehab and additional physical therapy for some time as he has been bed bound for quite some time since coming from [facility]. Per discussion with the patient's and also the patient he does not remember how he ended up in [place]. He was missing for two days before the was notified that he was in [place] [facility]. thank you Hollis Julien
[2018-06-22 07:59] LABS: BASO # 0.1 K/uL (0.0-0.2); EOS # 0.1 K/uL (0.0-0.7); EOS % 1.7 % (0.0-4.0); HEMOGLOBIN 7.2 g/dL (12.0-18.0); LYMPH # 0.6 K/uL (1.0-4.3); LYMPH % 11.5 % (20.0-40.0); MEAN CELL VOLUME 92.5 fL (80.0-94.0); MEAN CORPUSCULAR HGB CONC 33.5 g/dL (33.0-37.0); MONO # 0.6 K/uL (0.0-0.8); MONO % 11.3 % (0.0-10.0); NEUT % 74.5 % (50.0-75.0); NRBC % 0.1 % (0.0-2.0); RBC 2.33 Mil/uL (4.40-5.90); RED CELL DISTRIBUTION WIDTH 16.8 % (11.5-14.5); WHITE BLOOD COUNT 5.4 K/uL (4.8-10.8)
[2018-06-22] MEDS: (Novolin R) Insulin Human Regular 100 units/ml vial SC SCH ×4 (08:14→21:35)
[2018-06-22 08:22] LABS: ALB/GLOB RATIO 1.2 (1.0-2.1); ALBUMIN 3.2 g/dL (3.5-5.0); CALCIUM 8.5 mg/dl (8.6-10.4)
[2018-06-22] MEDS ORDERED: Pneumococcal 23-Valent Vaccine IM ONE (10:00)
[2018-06-22] MEDS ORDERED: Influenza Vaccine 60 MCG/0.5 ML SYR (3 yr & up) IM ONE (10:00)
[2018-06-22] MEDS: Ferric Sodium Gluconat Complex 125 MG in Sodium Chloride 0.9% 100 ML IVPB SCH (10:40)
[2018-06-22] MEDS: (Lantus) Insulin Glargine, Recombinant SC SCH (21:34)
[2018-06-23 06:30] LABS: BASO # 0.1 K/uL (0.0-0.2); BASO % 2.1 % (0.0-2.0); EOS # 0.2 K/uL (0.0-0.7); EOS % 3.3 % (0.0-4.0); HEMOGLOBIN 7.6 g/dL (12.0-18.0); LYMPH # 0.5 K/uL (1.0-4.3); LYMPH % 11.1 % (20.0-40.0); MEAN CELL VOLUME 92.2 fL (80.0-94.0); MEAN CORPUSCULAR HGB CONC 33.6 g/dL (33.0-37.0); MEAN PLATELET VOLUME 7.7 fL (7.2-11.7); MONO # 0.5 K/uL (0.0-0.8); NEUT # 3.5 K/uL (1.8-7.0); NEUT % 72.5 % (50.0-75.0); NRBC % 0.4 % (0.0-2.0); RBC 2.45 Mil/uL (4.40-5.90); RED CELL DISTRIBUTION WIDTH 17.1 % (11.5-14.5); WHITE BLOOD COUNT 4.9 K/uL (4.8-10.8)
[2018-06-23 06:50] LABS: ALB/GLOB RATIO 1.2 (1.0-2.1); ALBUMIN 3.3 g/dL (3.5-5.0); CALCIUM 8.3 mg/dl (8.6-10.4)
[2018-06-23] MEDS ORDERED: Sod Polystyrene Sulf 15 gm/60 ml Susp PO ONE (08:40)
[2018-06-23] MEDS ORDERED: Epoetin Alfa 10,000 unit/ml Dialysis IV SCH (09:00)
[2018-06-23] MEDS: (Novolin R) Insulin Human Regular 100 units/ml vial SC SCH ×4 (09:45→21:24)
[2018-06-23] MEDS: Epoetin Alfa 10,000 unit/ml Dialysis IV SCH (11:08)
[2018-06-23] MEDS ORDERED: Ferric Sodium Gluconat Complex 62.5 mg/5 ml Vial ONE (11:10)
--- NOTE | 2018-06-23 11:41 | CP.PCM.PN ---
<Elizabeth Claudio - Last Filed: 06/23/18 11:37> Subjective - Date & Time of Evaluation Date of Evaluation: 06/23/18 Time of Evaluation: 11:37 - Subjective Subjective: Elizabeth Claudio PGY1 Progress Note for Dr. Julien Pt was examined at bedside today. He has no complaints. He denies fever, chills, dizziness, shortness of breath, abdominal pain, chest pain, nausea, vomiting, diarrhea, dysuria. Objective - Vital Signs/Intake and Output Vital Signs (last 24 hours): Temp Pulse Resp BP Pulse Ox 97 F L 65 20 152/79 H 99 06/23/18 10:10 06/23/18 10:10 06/23/18 10:10 06/23/18 11:10 06/23/18 10:10 Intake and Output: 06/23/18 06/23/18 06:59 18:59 Intake Total 120 Balance 120 - Medications Medications: Current Medications Amlodipine Besylate (Norvasc) 10 mg PO DAILY [facility] Last Admin: 06/23/18 09:42 Dose: Not Given Aspirin (Aspirin Chewable) 81 mg PO DAILY [facility] Last Admin: 06/23/18 09:41 Dose: Not Given Calcitriol (Rocaltrol) 0.25 mcg PO DAILY [facility] Last Admin: 06/23/18 09:42 Dose: Not Given Calcium Acetate (Phoslo) 667 mg PO TID [facility] Last Admin: 06/23/18 09:42 Dose: Not Given Carvedilol (Coreg) 25 mg PO BID [facility] Last Admin: 06/23/18 09:41 Dose: Not Given Dextrose (Dextrose 50% Inj) 0 ml IV STAT PRN; Protocol PRN Reason: Hypoglycemia Protocol Dextrose (Glutose 15) 0 gm PO ONCE PRN; Protocol PRN Reason: Hypoglycemia Protocol Epoetin Rocael (Procrit) 10,000 unit IV MWF [facility] Last Admin: 06/23/18 11:08 Dose: 10,000 unit Glucagon (Glucagen Diagnostic Kit) 0 mg IM STAT PRN; Protocol PRN Reason: Hypoglycemia Protocol Heparin Sodium (Porcine) (Heparin) 5,000 units SC Q12 [facility] Last Admin: 06/23/18 09:41 Dose: Not Given Dextrose (Dextrose 5% In Water 1000 Ml) 1,000 mls @ 0 mls/hr IV .Q0M PRN; Protocol PRN Reason: Hypoglycemia Protocol Ferric Sodium Gluconate Complex 125 mg/ Sodium Chloride 110 mls @ 100 mls/hr IVPB Q24H [facility] Stop: 06/29/18 11:01 Last Admin: 06/22/18 10:40 Dose: 100 mls/hr Insulin Glargine (Lantus) 6 unit SC HS [facility] Last Admin: 06/22/18 21:34 Dose: 6 units Insulin Human Regular (Novolin R) 0 unit SC [facility]; Protocol Last Admin: 06/23/18 09:45 Dose: Not Given Rosuvastatin Calcium (Crestor) 5 mg PO HS [facility] Last Admin: 06/22/18 21:34 Dose: 5 mg Tamsulosin HCl (Flomax) 0.4 mg PO DAILY [facility] Last Admin: 06/23/18 09:41 Dose: Not Given - Labs Labs: 06/23/18 06:19 06/23/18 06:19 - Additional Findings Additional findings: - Constitutional Appears: Well, Non-toxic, No Acute Distress - Head Exam Head Exam: ATRAUMATIC, NORMOCEPHALIC - Eye Exam Eye Exam: EOMI, Normal appearance, PERRL Pupil Exam: NORMAL ACCOMODATION - ENT Exam ENT Exam: Mucous Membranes Moist - Respiratory Exam Respiratory Exam: Clear to Ausculation Bilateral, NORMAL BREATHING PATTERN. absent: Rales, Rhonchi, Wheezes - Cardiovascular Exam Cardiovascular Exam: REGULAR RHYTHM, +S1, +S2. absent: Gallop, Rubs, Murmur - GI/Abdominal Exam GI & Abdominal Exam: Soft, Normal Bowel Sounds. absent: Tenderness - Extremities Exam Extremities Exam: Normal Capillary Refill Additional comments: peripheral pulses palpable bilaterally (radial, PT) AVF in L arm. Palpable thrill and audible bruit - Neurological Exam Neurological Exam: Alert, Awake, Oriented x3 - Psychiatric Exam Psychiatric exam: Normal Affect, Normal Mood - Skin Skin Exam: Normal Color, Warm Assessment and Plan - Assessment and Plan (Free Text) Assessment: 72yo M with PMH of diabetes mellitus, ESRD on HD MWF, hypertension who was t ransferred from [facility] for dialysis placement. Pt getting HD, awaiting placement for outpatient HD. Plan: ESRD on HD - calcitrol 0.25mcg PO daily - Calcium carbonate 500mg PO TID - Ferric Sodium 125mg IVPB daily - I/Os, daily weights - awaiting dialysis placement - Nephrology consulted, Dr. Tatum- [facility] - restarted on MWF schedule - procrit 10,000u IV with dialysis Acute CVA - small lacunar infarct involving the left thalamic pulvinar nucleus seen on MRI - TPA was not given due to unknown last known normal - Echo: EF 60% and LVH - ASA 81mg PO daily - Crestor 5mg PO HS - Out of bed with assistance - Neuro checks q4H - PT DM2 - Lantus 6 units HS - Low Insulin sliding scale - Hypoglycemic protocol - accuchecks ACHS HTN - Carvedilol 25mg PO BID - Norvasc 10mg PO daily Anemia - Hb 7.6, asymptomatic - Ferric Sodium 125mg IVPB daily - continue to monitor PPX: GI: not indicated at this time DVT: Heparin 5000 SC Q12H Renal Diet Dispo: Awaiting outpatient HD placement. Likely d/c 06/25 or 06/26. Pt seen and case reviewed with Dr. Julien <Hollis Julien - Last Filed: 06/23/18 14:21> Objective - Vital Signs/Intake and Output Vital Signs (last 24 hours): Temp Pulse Resp BP Pulse Ox 97 F L 65 20 101/63 99 06/23/18 10:10 06/23/18 10:10 06/23/18 10:10 06/23/18 12:10 06/23/18 10:10 Intake and Output: 06/23/18 06/23/18 06:59 18:59 Intake Total 120 Balance 120 - Medications Medications: Current Medications Amlodipine Besylate (Norvasc) 10 mg PO DAILY [facility] Last Admin: 06/23/18 09:42 Dose: Not Given Aspirin (Aspirin Chewable) 81 mg PO DAILY [facility] Last Admin: 06/23/18 09:41 Dose: Not Given Calcitriol (Rocaltrol) 0.25 mcg PO DAILY [facility] Last Admin: 06/23/18 09:42 Dose: Not Given Calcium Acetate (Phoslo) 667 mg PO TID [facility] Last Admin: 06/23/18 09:42 Dose: Not Given Carvedilol (Coreg) 25 mg PO BID [facility] Last Admin: 06/23/18 09:41 Dose: Not Given Dextrose (Dextrose 50% Inj) 0 ml IV STAT PRN; Protocol PRN Reason: Hypoglycemia Protocol Dextrose (Glutose 15) 0 gm PO ONCE PRN; Protocol PRN Reason: Hypoglycemia Protocol Epoetin Rocael (Procrit) 10,000 unit IV MWF [facility] Last Admin: 06/23/18 11:08 Dose: 10,000 unit Glucagon (Glucagen Diagnostic Kit) 0 mg IM STAT PRN; Protocol PRN Reason: Hypoglycemia Protocol Heparin Sodium (Porcine) (Heparin) 5,000 units SC Q12 [facility] Last Admin: 06/23/18 09:41 Dose: Not Given Dextrose (Dextrose 5% In Water 1000 Ml) 1,000 mls @ 0 mls/hr IV .Q0M PRN; Protocol PRN Reason: Hypoglycemia Protocol Ferric Sodium Gluconate Complex 125 mg/ Sodium Chloride 110 mls @ 100 mls/hr IVPB Q24H [facility] Stop: 06/29/18 11:01 Last Admin: 06/22/18 10:40 Dose: 100 mls/hr Insulin Glargine (Lantus) 6 unit SC HS [facility] Last Admin: 06/22/18 21:34 Dose: 6 units Insulin Human Regular (Novolin R) 0 unit SC ACHS [facility]; Protocol Last Admin: 06/23/18 12:37 Dose: Not Given Rosuvastatin Calcium (Crestor) 5 mg PO HS [facility] Last Admin: 06/22/18 21:34 Dose: 5 mg Tamsulosin HCl (Flomax) 0.4 mg PO DAILY [facility] Last Admin: 06/23/18 09:41 Dose: Not Given - Labs Labs: 06/23/18 06:19 06/23/18 06:19 Attending/Attestation - Attestation I have personally seen and examined this patient.: Yes I have fully participated in the care of the patient.: Yes I have reviewed all pertinent clinical information, including history, physical exam and plan: Yes Notes (Text): 06/23/18 14:19 Medical attending: Patient was seen and examined by me. Agree with the above note by the resident The patient currently in HD when we saw him. He reported no acute events overnihgt. Yesterday I had a long extended discussion with family members. Today no one was at bedside. Evelialey patient would benefit from going to a place that both has HD as well as SCDs once case workers give the ok to go there Hollis Julien
--- NOTE | 2018-06-23 11:52 | CP.PCM.PN ---
Subjective - Date & Time of Evaluation Date of Evaluation: 06/23/18 Time of Evaluation: 11:50 - Subjective Subjective: Seen at dialysis To UF 3000ml Has clots in AVF On IV FE, EPO feels same Objective - Vital Signs/Intake and Output Vital Signs (last 24 hours): Temp Pulse Resp BP Pulse Ox 97 F L 65 20 152/79 H 99 06/23/18 10:10 06/23/18 10:10 06/23/18 10:10 06/23/18 11:10 06/23/18 10:10 Intake and Output: 06/23/18 06/23/18 06:59 18:59 Intake Total 120 Balance 120 - Medications Medications: Current Medications Amlodipine Besylate (Norvasc) 10 mg PO DAILY [facility] Last Admin: 06/23/18 09:42 Dose: Not Given Aspirin (Aspirin Chewable) 81 mg PO DAILY [facility] Last Admin: 06/23/18 09:41 Dose: Not Given Calcitriol (Rocaltrol) 0.25 mcg PO DAILY [facility] Last Admin: 06/23/18 09:42 Dose: Not Given Calcium Acetate (Phoslo) 667 mg PO TID [facility] Last Admin: 06/23/18 09:42 Dose: Not Given Carvedilol (Coreg) 25 mg PO BID [facility] Last Admin: 06/23/18 09:41 Dose: Not Given Dextrose (Dextrose 50% Inj) 0 ml IV STAT PRN; Protocol PRN Reason: Hypoglycemia Protocol Dextrose (Glutose 15) 0 gm PO ONCE PRN; Protocol PRN Reason: Hypoglycemia Protocol Epoetin Rocael (Procrit) 10,000 unit IV MWF [facility] Last Admin: 06/23/18 11:08 Dose: 10,000 unit Glucagon (Glucagen Diagnostic Kit) 0 mg IM STAT PRN; Protocol PRN Reason: Hypoglycemia Protocol Heparin Sodium (Porcine) (Heparin) 5,000 units SC Q12 [facility] Last Admin: 06/23/18 09:41 Dose: Not Given Dextrose (Dextrose 5% In Water 1000 Ml) 1,000 mls @ 0 mls/hr IV .Q0M PRN; Protocol PRN Reason: Hypoglycemia Protocol Ferric Sodium Gluconate Complex 125 mg/ Sodium Chloride 110 mls @ 100 mls/hr IVPB Q24H [facility] Stop: 06/29/18 11:01 Last Admin: 06/22/18 10:40 Dose: 100 mls/hr Insulin Glargine (Lantus) 6 unit SC HS [facility] Last Admin: 06/22/18 21:34 Dose: 6 units Insulin Human Regular (Novolin R) 0 unit SC [facility]; Protocol Last Admin: 06/23/18 09:45 Dose: Not Given Rosuvastatin Calcium (Crestor) 5 mg PO HS [facility] Last Admin: 06/22/18 21:34 Dose: 5 mg Tamsulosin HCl (Flomax) 0.4 mg PO DAILY [facility] Last Admin: 06/23/18 09:41 Dose: Not Given - Labs Labs: 06/23/18 06:19 06/23/18 06:19 - Constitutional Appears: No Acute Distress, Chronically Ill - Head Exam Head Exam: ATRAUMATIC, NORMAL INSPECTION - Eye Exam Eye Exam: EOMI, Normal appearance - Neck Exam Neck Exam: Normal Inspection. absent: Tenderness - Respiratory Exam Respiratory Exam: Clear to Ausculation Bilateral, NORMAL BREATHING PATTERN - Cardiovascular Exam Cardiovascular Exam: REGULAR RHYTHM, +S1 - GI/Abdominal Exam GI & Abdominal Exam: Soft. absent: Tenderness - Extremities Exam Extremities Exam: Normal Inspection. absent: Tenderness - Neurological Exam Neurological Exam: Awake, CN II-XII Intact - Skin Skin Exam: Dry, Warm Assessment and Plan (1) End stage renal disease Status: Acute (2) Type 2 diabetes mellitus with diabetic nephropathy Status: Acute (3) Hypertensive chronic kidney disease with stage 5 chronic kidney disease or end stage renal disease Status: Acute (4) CVA (cerebral vascular accident) Status: Acute (5) Prostate CA Status: Acute - Assessment and Plan (Free Text) Plan: dialysis MWF HD placement Vascular eval- AVF Same meds
[2018-06-23] MEDS: Ferric Sodium Gluconat Complex 125 MG in Sodium Chloride 0.9% 100 ML IVPB SCH (15:09)
[2018-06-23] MEDS: (Lantus) Insulin Glargine, Recombinant SC SCH (21:15)
--- NOTE | 2018-06-24 02:55 | CP.PCM.PN ---
<Luis Alfredo Tipton - Last Filed: 06/24/18 02:52> Subjective - Date & Time of Evaluation Date of Evaluation: 06/24/18 Time of Evaluation: 02:52 - Subjective Subjective: Progress Note Patient seen and examined at bedside. He has no complaints currently. He is resting comfortably in bed. He denies fevers, chills, dizziness, shortness of breath, abdominal pain, nausea, vomiting, diarrhea, constipation, dysuria. Objective - Vital Signs/Intake and Output Vital Signs (last 24 hours): Temp Pulse Resp BP Pulse Ox 98.2 F 79 20 131/69 95 06/24/18 00:43 06/24/18 00:43 06/24/18 00:43 06/24/18 00:43 06/24/18 00:43 Intake and Output: 06/23/18 06/24/18 18:59 06:59 Intake Total 200 Balance 200 - Medications Medications: Current Medications Amlodipine Besylate (Norvasc) 10 mg PO DAILY [facility] Last Admin: 06/23/18 14:32 Dose: 10 mg Aspirin (Aspirin Chewable) 81 mg PO DAILY [facility] Last Admin: 06/23/18 14:32 Dose: 81 mg Calcitriol (Rocaltrol) 0.25 mcg PO DAILY [facility] Last Admin: 06/23/18 14:32 Dose: 0.25 mcg Calcium Acetate (Phoslo) 667 mg PO TID [facility] Last Admin: 06/23/18 17:12 Dose: 667 mg Carvedilol (Coreg) 25 mg PO BID [facility] Last Admin: 06/23/18 17:12 Dose: 25 mg Dextrose (Dextrose 50% Inj) 0 ml IV STAT PRN; Protocol PRN Reason: Hypoglycemia Protocol Dextrose (Glutose 15) 0 gm PO ONCE PRN; Protocol PRN Reason: Hypoglycemia Protocol Epoetin Rocael (Procrit) 10,000 unit IV MWF [facility] Last Admin: 06/23/18 11:08 Dose: 10,000 unit Glucagon (Glucagen Diagnostic Kit) 0 mg IM STAT PRN; Protocol PRN Reason: Hypoglycemia Protocol Heparin Sodium (Porcine) (Heparin) 5,000 units SC Q12 [facility] Last Admin: 06/23/18 21:15 Dose: 5,000 units Dextrose (Dextrose 5% In Water 1000 Ml) 1,000 mls @ 0 mls/hr IV .Q0M PRN; Protocol PRN Reason: Hypoglycemia Protocol Ferric Sodium Gluconate Complex 125 mg/ Sodium Chloride 110 mls @ 100 mls/hr IVPB Q24H [facility] Stop: 06/29/18 11:01 Last Admin: 06/23/18 15:09 Dose: 100 mls/hr Insulin Glargine (Lantus) 6 unit SC HS [facility] Last Admin: 06/23/18 21:15 Dose: 6 units Insulin Human Regular (Novolin R) 0 unit SC [facility]; Protocol Last Admin: 06/23/18 21:24 Dose: Not Given Rosuvastatin Calcium (Crestor) 5 mg PO HS [facility] Last Admin: 06/23/18 21:15 Dose: 5 mg Tamsulosin HCl (Flomax) 0.4 mg PO DAILY [facility] Last Admin: 06/23/18 14:32 Dose: 0.4 mg - Labs Labs: 06/23/18 06:19 06/23/18 06:19 - Constitutional Appears: Well, Non-toxic, No Acute Distress - Head Exam Head Exam: ATRAUMATIC, NORMOCEPHALIC - Eye Exam Eye Exam: EOMI, PERRL - ENT Exam ENT Exam: Mucous Membranes Moist - Neck Exam Neck Exam: Full ROM - Respiratory Exam Respiratory Exam: Clear to Ausculation Bilateral, NORMAL BREATHING PATTERN. absent: Rales, Rhonchi, Wheezes, Respiratory Distress, Stridor - Cardiovascular Exam Cardiovascular Exam: REGULAR RHYTHM, +S1, +S2. absent: Gallop, Rubs, Murmur - GI/Abdominal Exam GI & Abdominal Exam: Soft, Normal Bowel Sounds. absent: Distended, Firm, Guarding, Rigid, Tenderness - Extremities Exam Extremities Exam: Normal Capillary Refill Additional comments: Peripheral pulses palpable bilaterally. AV fistula in left arm with palpable thrill. - Neurological Exam Neurological Exam: Alert, Awake, Oriented x3 - Psychiatric Exam Psychiatric exam: Normal Affect, Normal Mood - Skin Skin Exam: Dry, Intact, Warm Assessment and Plan - Assessment and Plan (Free Text) Assessment: 72 year old male with history of diabetes mellitus, ESRD on HD MWF, hypertension who was transferred from [facility] for dialysis placement. Currently receiving HD, awaiting placement for outpatient HD. Plan: ESRD on HD - calcitrol 0.25mcg PO daily - Calcium carbonate 500mg PO TID - Ferric Sodium 125mg IVPB daily - I/Os, daily weights - awaiting dialysis placement - Nephrology consulted, Dr. Tatum- recs appreciated - restarted on MWF schedule - procrit 10,000u IV with dialysis Acute CVA - small lacunar infarct involving the left thalamic pulvinar nucleus seen on MRI - TPA was not given due to unknown last known normal - Echo: EF 60% and LVH - ASA 81mg PO daily - Crestor 5mg PO HS - Out of bed with assistance - Neuro checks q4H - PT DM2 - Lantus 6 units HS - Low Insulin sliding scale - Hypoglycemic protocol - accuchecks ACHS HTN - Carvedilol 25mg PO BID - Norvasc 10mg PO daily Anemia - Hb low in 7s, asymptomatic - Ferric Sodium 125mg IVPB daily - continue to monitor PPX: GI: not indicated at this time DVT: Heparin 5000 SC Q12H Renal Diet Dispo: Awaiting outpatient HD placement. Likely d/c 06/25 or 06/26. Case discussed with Dr. Anaya Tipton, PGY1 <Hollis Julien H - Last Filed: 06/24/18 12:59> Objective - Vital Signs/Intake and Output Vital Signs (last 24 hours): Temp Pulse Resp BP Pulse Ox 98.4 F 77 20 155/77 H 96 06/24/18 08:00 06/24/18 08:00 06/24/18 08:00 06/24/18 09:46 06/24/18 08:00 Intake and Output: 06/24/18 06/24/18 06:59 18:59 Intake Total 200 Balance 200 - Medications Medications: Current Medications Amlodipine Besylate (Norvasc) 10 mg PO DAILY [facility] Last Admin: 06/24/18 09:46 Dose: 10 mg Aspirin (Aspirin Chewable) 81 mg PO DAILY [facility] Last Admin: 06/24/18 09:46 Dose: 81 mg Calcitriol (Rocaltrol) 0.25 mcg PO DAILY [facility] Last Admin: 06/24/18 09:47 Dose: 0.25 mcg Calcium Acetate (Phoslo) 667 mg PO TID [facility] Last Admin: 06/24/18 09:46 Dose: 667 mg Carvedilol (Coreg) 25 mg PO BID [facility] Last Admin: 06/24/18 09:46 Dose: 25 mg Dextrose (Dextrose 50% Inj) 0 ml IV STAT PRN; Protocol PRN Reason: Hypoglycemia Protocol Dextrose (Glutose 15) 0 gm PO ONCE PRN; Protocol PRN Reason: Hypoglycemia Protocol Epoetin Rocael (Procrit) 10,000 unit IV MWF [facility] Last Admin: 06/23/18 11:08 Dose: 10,000 unit Glucagon (Glucagen Diagnostic Kit) 0 mg IM STAT PRN; Protocol PRN Reason: Hypoglycemia Protocol Heparin Sodium (Porcine) (Heparin) 5,000 units SC Q12 [facility] Last Admin: 06/24/18 09:47 Dose: 5,000 units Dextrose (Dextrose 5% In Water 1000 Ml) 1,000 mls @ 0 mls/hr IV .Q0M PRN; Protocol PRN Reason: Hypoglycemia Protocol Ferric Sodium Gluconate Complex 125 mg/ Sodium Chloride 110 mls @ 100 mls/hr IVPB Q24H [facility] Stop: 06/29/18 11:01 Last Admin: 06/24/18 10:41 Dose: 100 mls/hr Insulin Glargine (Lantus) 6 unit SC HS [facility] Last Admin: 06/23/18 21:15 Dose: 6 units Insulin Human Regular (Novolin R) 0 unit SC ACHS [facility]; Protocol Last Admin: 06/24/18 08:30 Dose: 1 units Rosuvastatin Calcium (Crestor) 5 mg PO HS [facility] Last Admin: 06/23/18 21:15 Dose: 5 mg Tamsulosin HCl (Flomax) 0.4 mg PO DAILY [facility] Last Admin: 06/24/18 09:47 Dose: 0.4 mg - Labs Labs: 06/24/18 06:30 06/24/18 06:30 Attending/Attestation - Attestation I have personally seen and examined this patient.: Yes I have fully participated in the care of the patient.: Yes I have reviewed all pertinent clinical information, including history, physical exam and plan: Yes Notes (Text): Medical attending: Patient was seen and examined by me. Agree with the above note by the resident The patient was not in any acute distress when I came and saw, his was at bedside. I filled out additional paper work for her Also the patient reports feeling well. We are still pending HD placement as well as [facility] information at this time. Hgb is in the 7s - he reports that he is not having chest pain, and not short of breath. Currently getting IV iron replacement. The K was lower today, he had HD yesterday. Hollis Julien
[2018-06-24 06:39] LABS: BASO # 0.1 K/uL (0.0-0.2); BASO % 1.4 % (0.0-2.0); EOS # 0.1 K/uL (0.0-0.7); EOS % 2.4 % (0.0-4.0); HEMOGLOBIN 7.3 g/dL (12.0-18.0); LYMPH # 0.5 K/uL (1.0-4.3); LYMPH % 10.7 % (20.0-40.0); MEAN CORPUSCULAR HEMOGLOBIN 30.6 pg (27.0-31.0); MEAN CORPUSCULAR HGB CONC 32.9 g/dL (33.0-37.0); MEAN PLATELET VOLUME 7.9 fL (7.2-11.7); MONO # 0.7 K/uL (0.0-0.8); MONO % 13.2 % (0.0-10.0); NEUT # 3.7 K/uL (1.8-7.0); NEUT % 72.3 % (50.0-75.0); NRBC % 0.5 % (0.0-2.0); RBC 2.38 Mil/uL (4.40-5.90); RED CELL DISTRIBUTION WIDTH 17.5 % (11.5-14.5); WHITE BLOOD COUNT 5.1 K/uL (4.8-10.8)
[2018-06-24 07:39] LABS: ALB/GLOB RATIO 1.2 (1.0-2.1); ALBUMIN 3.1 g/dL (3.5-5.0)
[2018-06-24] MEDS: (Novolin R) Insulin Human Regular 100 units/ml vial SC SCH ×4 (08:30→21:40)
--- NOTE | 2018-06-24 09:16 | CP.PCM.PN ---
Subjective - Date & Time of Evaluation Date of Evaluation: 06/24/18 Time of Evaluation: 09:14 Objective - Vital Signs/Intake and Output Vital Signs (last 24 hours): Temp Pulse Resp BP Pulse Ox 98.4 F 77 20 155/77 H 96 06/24/18 08:00 06/24/18 08:00 06/24/18 08:00 06/24/18 08:00 06/24/18 08:00 Intake and Output: 06/24/18 06/24/18 06:59 18:59 Intake Total 200 Balance 200 - Medications Medications: Current Medications Amlodipine Besylate (Norvasc) 10 mg PO DAILY [facility] Last Admin: 06/23/18 14:32 Dose: 10 mg Aspirin (Aspirin Chewable) 81 mg PO DAILY [facility] Last Admin: 06/23/18 14:32 Dose: 81 mg Calcitriol (Rocaltrol) 0.25 mcg PO DAILY [facility] Last Admin: 06/23/18 14:32 Dose: 0.25 mcg Calcium Acetate (Phoslo) 667 mg PO TID [facility] Last Admin: 06/23/18 17:12 Dose: 667 mg Carvedilol (Coreg) 25 mg PO BID [facility] Last Admin: 06/23/18 17:12 Dose: 25 mg Dextrose (Dextrose 50% Inj) 0 ml IV STAT PRN; Protocol PRN Reason: Hypoglycemia Protocol Dextrose (Glutose 15) 0 gm PO ONCE PRN; Protocol PRN Reason: Hypoglycemia Protocol Epoetin Rocael (Procrit) 10,000 unit IV MWF [facility] Last Admin: 06/23/18 11:08 Dose: 10,000 unit Glucagon (Glucagen Diagnostic Kit) 0 mg IM STAT PRN; Protocol PRN Reason: Hypoglycemia Protocol Heparin Sodium (Porcine) (Heparin) 5,000 units SC Q12 [facility] Last Admin: 06/23/18 21:15 Dose: 5,000 units Dextrose (Dextrose 5% In Water 1000 Ml) 1,000 mls @ 0 mls/hr IV .Q0M PRN; Protocol PRN Reason: Hypoglycemia Protocol Ferric Sodium Gluconate Complex 125 mg/ Sodium Chloride 110 mls @ 100 mls/hr IVPB Q24H [facility] Stop: 06/29/18 11:01 Last Admin: 06/23/18 15:09 Dose: 100 mls/hr Insulin Glargine (Lantus) 6 unit SC HS [facility] Last Admin: 06/23/18 21:15 Dose: 6 units Insulin Human Regular (Novolin R) 0 unit SC ACHS [facility]; Protocol Last Admin: 06/24/18 08:30 Dose: 1 units Rosuvastatin Calcium (Crestor) 5 mg PO HS [facility] Last Admin: 06/23/18 21:15 Dose: 5 mg Tamsulosin HCl (Flomax) 0.4 mg PO DAILY [facility] Last Admin: 06/23/18 14:32 Dose: 0.4 mg - Labs Labs: 06/24/18 06:30 06/24/18 06:30 - Constitutional Appears: No Acute Distress, Chronically Ill - Head Exam Head Exam: ATRAUMATIC, NORMAL INSPECTION - Eye Exam Eye Exam: EOMI, Normal appearance - Neck Exam Neck Exam: Normal Inspection. absent: Tenderness - Respiratory Exam Respiratory Exam: Clear to Ausculation Bilateral, NORMAL BREATHING PATTERN - Cardiovascular Exam Cardiovascular Exam: REGULAR RHYTHM, +S1 - GI/Abdominal Exam GI & Abdominal Exam: Soft. absent: Tenderness - Neurological Exam Neurological Exam: Awake, CN II-XII Intact - Skin Skin Exam: Dry, Warm Assessment and Plan (1) End stage renal disease Status: Acute (2) Type 2 diabetes mellitus with diabetic nephropathy Status: Acute (3) Hypertensive chronic kidney disease with stage 5 chronic kidney disease or end stage renal disease Status: Acute (4) CVA (cerebral vascular accident) Status: Acute (5) Prostate CA Status: Acute
--- NOTE | 2018-06-24 09:24 | CP.PCM.PN ---
Subjective - Date & Time of Evaluation Date of Evaluation: 06/24/18 Time of Evaluation: 09:21 - Subjective Subjective: s/p dialysis 06/23- tolerated well AV fistula with excess clots Hg low despite EPO, IV Fe Objective - Vital Signs/Intake and Output Vital Signs (last 24 hours): Temp Pulse Resp BP Pulse Ox 98.4 F 77 20 155/77 H 96 06/24/18 08:00 06/24/18 08:00 06/24/18 08:00 06/24/18 08:00 06/24/18 08:00 Intake and Output: 06/24/18 06/24/18 06:59 18:59 Intake Total 200 Balance 200 - Medications Medications: Current Medications Amlodipine Besylate (Norvasc) 10 mg PO DAILY [facility] Last Admin: 06/23/18 14:32 Dose: 10 mg Aspirin (Aspirin Chewable) 81 mg PO DAILY [facility] Last Admin: 06/23/18 14:32 Dose: 81 mg Calcitriol (Rocaltrol) 0.25 mcg PO DAILY [facility] Last Admin: 06/23/18 14:32 Dose: 0.25 mcg Calcium Acetate (Phoslo) 667 mg PO TID [facility] Last Admin: 06/23/18 17:12 Dose: 667 mg Carvedilol (Coreg) 25 mg PO BID [facility] Last Admin: 06/23/18 17:12 Dose: 25 mg Dextrose (Dextrose 50% Inj) 0 ml IV STAT PRN; Protocol PRN Reason: Hypoglycemia Protocol Dextrose (Glutose 15) 0 gm PO ONCE PRN; Protocol PRN Reason: Hypoglycemia Protocol Epoetin Rocael (Procrit) 10,000 unit IV MWF [facility] Last Admin: 06/23/18 11:08 Dose: 10,000 unit Glucagon (Glucagen Diagnostic Kit) 0 mg IM STAT PRN; Protocol PRN Reason: Hypoglycemia Protocol Heparin Sodium (Porcine) (Heparin) 5,000 units SC Q12 [facility] Last Admin: 06/23/18 21:15 Dose: 5,000 units Dextrose (Dextrose 5% In Water 1000 Ml) 1,000 mls @ 0 mls/hr IV .Q0M PRN; Protocol PRN Reason: Hypoglycemia Protocol Ferric Sodium Gluconate Complex 125 mg/ Sodium Chloride 110 mls @ 100 mls/hr IVPB Q24H [facility] Stop: 06/29/18 11:01 Last Admin: 06/23/18 15:09 Dose: 100 mls/hr Insulin Glargine (Lantus) 6 unit SC HS [facility] Last Admin: 06/23/18 21:15 Dose: 6 units Insulin Human Regular (Novolin R) 0 unit SC ACHS [facility]; Protocol Last Admin: 06/24/18 08:30 Dose: 1 units Rosuvastatin Calcium (Crestor) 5 mg PO HS [facility] Last Admin: 06/23/18 21:15 Dose: 5 mg Tamsulosin HCl (Flomax) 0.4 mg PO DAILY [facility] Last Admin: 06/23/18 14:32 Dose: 0.4 mg - Labs Labs: 06/24/18 06:30 06/24/18 06:30 - Constitutional Appears: No Acute Distress, Chronically Ill - Head Exam Head Exam: ATRAUMATIC, NORMAL INSPECTION - Eye Exam Eye Exam: EOMI, Normal appearance - Neck Exam Neck Exam: Normal Inspection. absent: Tenderness - Respiratory Exam Respiratory Exam: Clear to Ausculation Bilateral, NORMAL BREATHING PATTERN - Cardiovascular Exam Cardiovascular Exam: REGULAR RHYTHM, +S1 - GI/Abdominal Exam GI & Abdominal Exam: Soft. absent: Tenderness - Extremities Exam Extremities Exam: Normal Inspection. absent: Tenderness - Neurological Exam Neurological Exam: Awake, CN II-XII Intact - Skin Skin Exam: Dry, Warm Assessment and Plan (1) End stage renal disease Status: Acute (2) Type 2 diabetes mellitus with diabetic nephropathy Status: Acute (3) Hypertensive chronic kidney disease with stage 5 chronic kidney disease or end stage renal disease Status: Acute (4) CVA (cerebral vascular accident) Status: Acute (5) Prostate CA Status: Acute - Assessment and Plan (Free Text) Plan: Dialysis MWF AV F eval by vascular HD placement check stools for OB HD placement
[2018-06-24] MEDS: Ferric Sodium Gluconat Complex 125 MG in Sodium Chloride 0.9% 100 ML IVPB SCH (10:41)
[2018-06-24] MEDS: (Lantus) Insulin Glargine, Recombinant SC SCH (21:39)
[2018-06-25 07:19] LABS: BASO # 0.1 K/uL (0.0-0.2); BASO % 1.3 % (0.0-2.0); EOS # 0.1 K/uL (0.0-0.7); EOS % 2.3 % (0.0-4.0); HEMOGLOBIN 7.7 g/dL (12.0-18.0); LYMPH # 0.6 K/uL (1.0-4.3); LYMPH % 10.1 % (20.0-40.0); MEAN CELL VOLUME 93.5 fL (80.0-94.0); MEAN CORPUSCULAR HEMOGLOBIN 31.5 pg (27.0-31.0); MEAN CORPUSCULAR HGB CONC 33.7 g/dL (33.0-37.0); MEAN PLATELET VOLUME 8.3 fL (7.2-11.7); MONO # 0.8 K/uL (0.0-0.8); MONO % 14.1 % (0.0-10.0); NEUT % 72.2 % (50.0-75.0); NRBC % 0.1 % (0.0-2.0); RBC 2.45 Mil/uL (4.40-5.90); WHITE BLOOD COUNT 5.6 K/uL (4.8-10.8)
[2018-06-25 08:13] LABS: ALB/GLOB RATIO 1.2 (1.0-2.1); ALBUMIN 3.3 g/dL (3.5-5.0); CALCIUM 8.1 mg/dl (8.6-10.4)
[2018-06-25] MEDS: (Novolin R) Insulin Human Regular 100 units/ml vial SC SCH ×4 (08:30→21:29)
[2018-06-25] MEDS: Ferric Sodium Gluconat Complex 125 MG in Sodium Chloride 0.9% 100 ML IVPB SCH (11:03)
[2018-06-25] MEDS: Epoetin Alfa 10,000 unit/ml Dialysis IV SCH (11:04)
--- NOTE | 2018-06-25 12:56 | CP.PCM.PN ---
Subjective - Date & Time of Evaluation Date of Evaluation: 06/25/18 Time of Evaluation: 12:54 - Subjective Subjective: Seen on dialysis - AV fistula working well now Hg increased to 7.7 HTN controlled no new sxs Objective - Vital Signs/Intake and Output Vital Signs (last 24 hours): Temp Pulse Resp BP Pulse Ox 97.5 F L 70 18 142/70 100 06/25/18 09:45 06/25/18 09:45 06/25/18 09:45 06/25/18 12:25 06/25/18 09:45 Intake and Output: 06/25/18 06/25/18 06:59 18:59 Intake Total 200 Balance 200 - Medications Medications: Current Medications Amlodipine Besylate (Norvasc) 10 mg PO DAILY [facility] Last Admin: 06/25/18 09:29 Dose: Not Given Aspirin (Aspirin Chewable) 81 mg PO DAILY [facility] Last Admin: 06/25/18 09:28 Dose: Not Given Calcitriol (Rocaltrol) 0.25 mcg PO DAILY [facility] Last Admin: 06/25/18 09:29 Dose: Not Given Calcium Acetate (Phoslo) 667 mg PO TID [facility] Last Admin: 06/25/18 09:29 Dose: Not Given Carvedilol (Coreg) 25 mg PO BID [facility] Last Admin: 06/25/18 09:28 Dose: Not Given Dextrose (Dextrose 50% Inj) 0 ml IV STAT PRN; Protocol PRN Reason: Hypoglycemia Protocol Dextrose (Glutose 15) 0 gm PO ONCE PRN; Protocol PRN Reason: Hypoglycemia Protocol Epoetin Rocael (Procrit) 10,000 unit IV MWF [facility] Last Admin: 06/25/18 11:04 Dose: 10,000 unit Glucagon (Glucagen Diagnostic Kit) 0 mg IM STAT PRN; Protocol PRN Reason: Hypoglycemia Protocol Heparin Sodium (Porcine) (Heparin) 5,000 units SC Q12 [facility] Last Admin: 06/25/18 09:29 Dose: Not Given Dextrose (Dextrose 5% In Water 1000 Ml) 1,000 mls @ 0 mls/hr IV .Q0M PRN; Protocol PRN Reason: Hypoglycemia Protocol Ferric Sodium Gluconate Complex 125 mg/ Sodium Chloride 110 mls @ 100 mls/hr IVPB Q24H [facility] Stop: 06/29/18 11:01 Last Admin: 06/25/18 11:03 Dose: 100 mls/hr Insulin Glargine (Lantus) 6 unit SC HS [facility] Last Admin: 06/24/18 21:39 Dose: 6 units Insulin Human Regular (Novolin R) 0 unit SC [facility]; Protocol Last Admin: 06/25/18 12:05 Dose: Not Given Rosuvastatin Calcium (Crestor) 5 mg PO HS [facility] Last Admin: 06/24/18 21:39 Dose: 5 mg Tamsulosin HCl (Flomax) 0.4 mg PO DAILY [facility] Last Admin: 06/25/18 09:29 Dose: Not Given - Labs Labs: 06/25/18 06:41 06/25/18 06:41 - Constitutional Appears: No Acute Distress, Chronically Ill - Head Exam Head Exam: ATRAUMATIC, NORMAL INSPECTION - Eye Exam Eye Exam: EOMI, Normal appearance - Neck Exam Neck Exam: Normal Inspection. absent: Tenderness - Respiratory Exam Respiratory Exam: Clear to Ausculation Bilateral, NORMAL BREATHING PATTERN - Cardiovascular Exam Cardiovascular Exam: REGULAR RHYTHM, +S1 - GI/Abdominal Exam GI & Abdominal Exam: Soft. absent: Tenderness - Extremities Exam Extremities Exam: Normal Inspection. absent: Tenderness - Neurological Exam Neurological Exam: Awake, CN II-XII Intact - Skin Skin Exam: Dry, Warm Assessment and Plan (1) End stage renal disease Status: Acute (2) Type 2 diabetes mellitus with diabetic nephropathy Status: Acute (3) Hypertensive chronic kidney disease with stage 5 chronic kidney disease or end stage renal disease Status: Acute (4) CVA (cerebral vascular accident) Status: Acute (5) Prostate CA Status: Acute - Assessment and Plan (Free Text) Plan: continue EPO, IV Fe continue ca acetate, calcitriol Await HD placement HD MWF
--- NOTE | 2018-06-25 14:32 | CP.PCM.PN ---
<Elizabeth Claudio - Last Filed: 06/25/18 14:30> Subjective - Date & Time of Evaluation Date of Evaluation: 06/25/18 Time of Evaluation: 14:30 - Subjective Subjective: Elizabeth Claudio PGY1 Progress Note for Dr. Julien Pt was examined at bedside this morning. He has no complaints. He denies chest pain, headache, abdominal pain, shortness of breath, nausea, vomiting, diarrhea, dysuria. Objective - Vital Signs/Intake and Output Vital Signs (last 24 hours): Temp Pulse Resp BP Pulse Ox 97.3 F L 70 18 131/49 L 99 06/25/18 13:25 06/25/18 13:25 06/25/18 13:25 06/25/18 13:25 06/25/18 13:25 Intake and Output: 06/25/18 06/25/18 06:59 18:59 Intake Total 200 Balance 200 - Medications Medications: Current Medications Amlodipine Besylate (Norvasc) 10 mg PO DAILY [facility] Last Admin: 06/25/18 09:29 Dose: Not Given Aspirin (Aspirin Chewable) 81 mg PO DAILY [facility] Last Admin: 06/25/18 09:28 Dose: Not Given Calcitriol (Rocaltrol) 0.25 mcg PO DAILY [facility] Last Admin: 06/25/18 09:29 Dose: Not Given Calcium Acetate (Phoslo) 667 mg PO TID [facility] Last Admin: 06/25/18 14:09 Dose: 667 mg Carvedilol (Coreg) 25 mg PO BID [facility] Last Admin: 06/25/18 09:28 Dose: Not Given Dextrose (Dextrose 50% Inj) 0 ml IV STAT PRN; Protocol PRN Reason: Hypoglycemia Protocol Dextrose (Glutose 15) 0 gm PO ONCE PRN; Protocol PRN Reason: Hypoglycemia Protocol Epoetin Rocael (Procrit) 10,000 unit IV MWF [facility] Last Admin: 06/25/18 11:04 Dose: 10,000 unit Glucagon (Glucagen Diagnostic Kit) 0 mg IM STAT PRN; Protocol PRN Reason: Hypoglycemia Protocol Heparin Sodium (Porcine) (Heparin) 5,000 units SC Q12 [facility] Last Admin: 06/25/18 09:29 Dose: Not Given Dextrose (Dextrose 5% In Water 1000 Ml) 1,000 mls @ 0 mls/hr IV .Q0M PRN; Protocol PRN Reason: Hypoglycemia Protocol Ferric Sodium Gluconate Complex 125 mg/ Sodium Chloride 110 mls @ 100 mls/hr IVPB Q24H [facility] Stop: 06/29/18 11:01 Last Admin: 06/25/18 11:03 Dose: 100 mls/hr Insulin Glargine (Lantus) 6 unit SC HS [facility] Last Admin: 06/24/18 21:39 Dose: 6 units Insulin Human Regular (Novolin R) 0 unit SC [facility]; Protocol Last Admin: 06/25/18 12:05 Dose: Not Given Rosuvastatin Calcium (Crestor) 5 mg PO HS [facility] Last Admin: 06/24/18 21:39 Dose: 5 mg Tamsulosin HCl (Flomax) 0.4 mg PO DAILY [facility] Last Admin: 06/25/18 09:29 Dose: Not Given - Labs Labs: 06/25/18 06:41 06/25/18 06:41 - Additional Findings Additional findings: - Constitutional Appears: Well, Non-toxic, No Acute Distress - Head Exam Head Exam: ATRAUMATIC, NORMOCEPHALIC - Eye Exam Eye Exam: EOMI, Normal appearance, PERRL Pupil Exam: NORMAL ACCOMODATION - ENT Exam ENT Exam: Mucous Membranes Moist - Respiratory Exam Respiratory Exam: Clear to Ausculation Bilateral, NORMAL BREATHING PATTERN. absent: Rales, Rhonchi, Wheezes - Cardiovascular Exam Cardiovascular Exam: REGULAR RHYTHM, +S1, +S2. absent: Gallop, Rubs, Murmur - GI/Abdominal Exam GI & Abdominal Exam: Soft, Normal Bowel Sounds. absent: Tenderness - Extremities Exam Extremities Exam: Normal Capillary Refill Additional comments: peripheral pulses palpable bilaterally (radial, PT) AVF in L arm. Palpable thrill and audible bruit - Neurological Exam Neurological Exam: Alert, Awake, Oriented x3 - Psychiatric Exam Psychiatric exam: Normal Affect, Normal Mood - Skin Skin Exam: Normal Color, Warm Assessment and Plan - Assessment and Plan (Free Text) Assessment: 72yo M with PMH of diabetes mellitus, ESRD on HD MWF, hypertension who was transferred from [facility] for dialysis placement. Pt getting HD, awaiting placement for outpatient HD. Plan: ESRD on HD - calcitrol 0.25mcg PO daily - Calcium carbonate 500mg PO TID - Ferric Sodium 125mg IVPB daily - I/Os, daily weights - awaiting dialysis placement - Nephrology consulted, Dr. Tatum- recs appreciated - restarted on MWF schedule - procrit 10,000u IV with dialysis Acute CVA - small lacunar infarct involving the left thalamic pulvinar nucleus seen on MRI - TPA was not given due to unknown last known normal - Echo: EF 60% and LVH - ASA 81mg PO daily - Crestor 5mg PO HS - Out of bed with assistance - Neuro checks q4H - PT DM2 - Lantus 6 units HS - Low Insulin sliding scale - Hypoglycemic protocol - accuchecks ACHS HTN - Carvedilol 25mg PO BID - Norvasc 10mg PO daily Anemia - Hb 7.7, asymptomatic - Ferric Sodium 125mg IVPB daily - continue to monitor PPX: GI: not indicated at this time DVT: Heparin 5000 SC Q12H Renal Diet Dispo: Awaiting outpatient HD placement Pt seen and case reviewed with Dr. Julien <Hollis Julien - Last Filed: 06/25/18 14:44> Objective - Vital Signs/Intake and Output Vital Signs (last 24 hours): Temp Pulse Resp BP Pulse Ox 97.3 F L 70 18 131/49 L 99 06/25/18 13:25 06/25/18 13:25 06/25/18 13:25 06/25/18 13:25 06/25/18 13:25 Intake and Output: 06/25/18 06/25/18 06:59 18:59 Intake Total 200 480 Balance 200 480 - Medications Medications: Current Medications Amlodipine Besylate (Norvasc) 10 mg PO DAILY [facility] Last Admin: 06/25/18 09:29 Dose: Not Given Aspirin (Aspirin Chewable) 81 mg PO DAILY [facility] Last Admin: 06/25/18 09:28 Dose: Not Given Calcitriol (Rocaltrol) 0.25 mcg PO DAILY [facility] Last Admin: 06/25/18 09:29 Dose: Not Given Calcium Acetate (Phoslo) 667 mg PO TID [facility] Last Admin: 06/25/18 14:09 Dose: 667 mg Carvedilol (Coreg) 25 mg PO BID [facility] Last Admin: 06/25/18 09:28 Dose: Not Given Dextrose (Dextrose 50% Inj) 0 ml IV STAT PRN; Protocol PRN Reason: Hypoglycemia Protocol Dextrose (Glutose 15) 0 gm PO ONCE PRN; Protocol PRN Reason: Hypoglycemia Protocol Epoetin Rocael (Procrit) 10,000 unit IV MWF [facility] Last Admin: 06/25/18 11:04 Dose: 10,000 unit Glucagon (Glucagen Diagnostic Kit) 0 mg IM STAT PRN; Protocol PRN Reason: Hypoglycemia Protocol Heparin Sodium (Porcine) (Heparin) 5,000 units SC Q12 [facility] Last Admin: 06/25/18 09:29 Dose: Not Given Dextrose (Dextrose 5% In Water 1000 Ml) 1,000 mls @ 0 mls/hr IV .Q0M PRN; Protocol PRN Reason: Hypoglycemia Protocol Ferric Sodium Gluconate Complex 125 mg/ Sodium Chloride 110 mls @ 100 mls/hr IVPB Q24H [facility] Stop: 06/29/18 11:01 Last Admin: 06/25/18 11:03 Dose: 100 mls/hr Insulin Glargine (Lantus) 6 unit SC HS [facility] Last Admin: 06/24/18 21:39 Dose: 6 units Insulin Human Regular (Novolin R) 0 unit SC ACHS [facility]; Protocol Last Admin: 06/25/18 12:05 Dose: Not Given Rosuvastatin Calcium (Crestor) 5 mg PO HS [facility] Last Admin: 06/24/18 21:39 Dose: 5 mg Tamsulosin HCl (Flomax) 0.4 mg PO DAILY [facility] Last Admin: 06/25/18 09:29 Dose: Not Given - Labs Labs: 06/25/18 06:41 06/25/18 06:41 Attending/Attestation - Attestation I have personally seen and examined this patient.: Yes I have fully participated in the care of the patient.: Yes I have reviewed all pertinent clinical information, including history, physical exam and plan: Yes Notes (Text): 06/25/18 14:41 Medical attending: Patient was seen and examined by me. Agree with the above note by the resident The patient was not in any acute distress when I came and saw the patient - he was at HD at that time I also later spoke with the patient's as well. At this time we are pending the placement at this time Hollis Julien
[2018-06-25] MEDS: (Lantus) Insulin Glargine, Recombinant SC SCH (21:28)
[2018-06-26 07:05] LABS: BASO # 0.1 K/uL (0.0-0.2); BASO % 1.3 % (0.0-2.0); EOS # 0.1 K/uL (0.0-0.7); EOS % 2.2 % (0.0-4.0); HEMOGLOBIN 7.6 g/dL (12.0-18.0); LYMPH # 0.7 K/uL (1.0-4.3); LYMPH % 12.4 % (20.0-40.0); MEAN CORPUSCULAR HEMOGLOBIN 31.4 pg (27.0-31.0); MEAN PLATELET VOLUME 7.9 fL (7.2-11.7); MONO # 0.8 K/uL (0.0-0.8); NEUT # 3.6 K/uL (1.8-7.0); NEUT % 69.1 % (50.0-75.0); NRBC % 0.5 % (0.0-2.0); RBC 2.43 Mil/uL (4.40-5.90); RED CELL DISTRIBUTION WIDTH 18.4 % (11.5-14.5); WHITE BLOOD COUNT 5.2 K/uL (4.8-10.8)
[2018-06-26 07:42] LABS: ALB/GLOB RATIO 1.2 (1.0-2.1); ALBUMIN 3.1 g/dL (3.5-5.0)
[2018-06-26] MEDS: (Novolin R) Insulin Human Regular 100 units/ml vial SC SCH ×4 (08:22→21:50)
--- NOTE | 2018-06-26 09:26 | CP.PCM.PN ---
Subjective - Date & Time of Evaluation Date of Evaluation: 06/26/18 Time of Evaluation: 09:24 - Subjective Subjective: stable dialysis course- MWF No new complaint Hg still low despite meds- EPO, Fe HTN controlled Objective - Vital Signs/Intake and Output Vital Signs (last 24 hours): Temp Pulse Resp BP Pulse Ox 98.6 F 71 20 147/74 97 06/26/18 08:00 06/26/18 08:00 06/26/18 08:00 06/26/18 08:00 06/26/18 08:00 - Medications Medications: Current Medications Amlodipine Besylate (Norvasc) 10 mg PO DAILY [facility] Last Admin: 06/25/18 09:29 Dose: Not Given Aspirin (Aspirin Chewable) 81 mg PO DAILY [facility] Last Admin: 06/25/18 09:28 Dose: Not Given Calcitriol (Rocaltrol) 0.25 mcg PO DAILY [facility] Last Admin: 06/25/18 09:29 Dose: Not Given Calcium Acetate (Phoslo) 667 mg PO TID [facility] Last Admin: 06/25/18 17:57 Dose: 667 mg Carvedilol (Coreg) 25 mg PO BID [facility] Last Admin: 06/25/18 18:01 Dose: 25 mg Dextrose (Dextrose 50% Inj) 0 ml IV STAT PRN; Protocol PRN Reason: Hypoglycemia Protocol Dextrose (Glutose 15) 0 gm PO ONCE PRN; Protocol PRN Reason: Hypoglycemia Protocol Epoetin Rocael (Procrit) 10,000 unit IV MWF [facility] Last Admin: 06/25/18 11:04 Dose: 10,000 unit Glucagon (Glucagen Diagnostic Kit) 0 mg IM STAT PRN; Protocol PRN Reason: Hypoglycemia Protocol Heparin Sodium (Porcine) (Heparin) 5,000 units SC Q12 [facility] Last Admin: 06/25/18 21:30 Dose: 5,000 units Dextrose (Dextrose 5% In Water 1000 Ml) 1,000 mls @ 0 mls/hr IV .Q0M PRN; Protocol PRN Reason: Hypoglycemia Protocol Ferric Sodium Gluconate Complex 125 mg/ Sodium Chloride 110 mls @ 100 mls/hr IVPB Q24H [facility] Stop: 06/29/18 11:01 Last Admin: 06/25/18 11:03 Dose: 100 mls/hr Insulin Glargine (Lantus) 6 unit SC HS [facility] Last Admin: 06/25/18 21:28 Dose: 6 units Insulin Human Regular (Novolin R) 0 unit SC ACHS [facility]; Protocol Last Admin: 06/26/18 08:22 Dose: Not Given Rosuvastatin Calcium (Crestor) 5 mg PO [facility] Last Admin: 06/25/18 21:28 Dose: 5 mg Tamsulosin HCl (Flomax) 0.4 mg PO DAILY [facility] Last Admin: 06/25/18 09:29 Dose: Not Given - Labs Labs: 06/26/18 06:58 06/26/18 06:58 - Constitutional Appears: No Acute Distress, Chronically Ill - Head Exam Head Exam: ATRAUMATIC, NORMAL INSPECTION - Eye Exam Eye Exam: EOMI, Normal appearance - Neck Exam Neck Exam: Normal Inspection. absent: Tenderness - Respiratory Exam Respiratory Exam: Clear to Ausculation Bilateral, NORMAL BREATHING PATTERN - Cardiovascular Exam Cardiovascular Exam: REGULAR RHYTHM, +S1 - GI/Abdominal Exam GI & Abdominal Exam: Soft. absent: Tenderness - Extremities Exam Extremities Exam: Normal Inspection. absent: Tenderness - Neurological Exam Neurological Exam: Awake, CN II-XII Intact - Skin Skin Exam: Dry, Warm Assessment and Plan (1) End stage renal disease Status: Acute (2) Type 2 diabetes mellitus with diabetic nephropathy Status: Acute (3) Hypertensive chronic kidney disease with stage 5 chronic kidney disease or end stage renal disease Status: Acute (4) CVA (cerebral vascular accident) Status: Acute (5) Prostate CA Status: Acute - Assessment and Plan (Free Text) Plan: Same dialysis MWF If Hg remains low- consider heme eval as stool for OB negative
[2018-06-26] MEDS: Ferric Sodium Gluconat Complex 125 MG in Sodium Chloride 0.9% 100 ML IVPB SCH (12:00)
--- NOTE | 2018-06-26 14:57 | VASCLAB ---
Date of service: 06/26/2018 PROCEDURE: Arterial-Venous shunt Evaluation. HISTORY: evaluation of fistula PRIORS: None. TECHNIQUE: Ultrasound evaluation of arterial-venous shunt with color doppler and velocity measurements. Report prepared by FREDY Alcaraz, RVT FINDINGS: Type of arterial-venous shunt: Vein Afferent Artery: Brachial Efferent Vein: Cephalic 1. Afferent Artery: Velocity 238 cm/s Image Characteristics: 2. Inflow Anastamosis: Velocity 598 cm/s Image Characteristics: 3. Distal vein flow: Velocity 132 cm/s Image Characteristics: 4. Mid vein flow: Velocity 358 cm/s Image Characteristics: 5. Proximal vein flow: Velocity 195 cm/s Image Characteristics: OTHER FINDINGS: The anastamosis velocity is 598 cm/s, distal upper arm cephalic vein velocity 132 cm/s, mid 358 cm/s, proximal 195 cm/s, and subclavian vein 272 cm/s. IMPRESSION: LEFT BRACHIAL CEPHALIC VEIN FISTULA No evidence of hemodynamically significant stenosis.
--- NOTE | 2018-06-26 15:31 | CP.PCM.PN ---
<Elizabeth Claudio - Last Filed: 06/26/18 15:29> Subjective - Date & Time of Evaluation Date of Evaluation: 06/26/18 Time of Evaluation: 15:29 - Subjective Subjective: Elizabeth Claudio PGY1 Progress Note for Dr. Julien Pt was examined at bedside this morning. He has no complaints today. He denies dizziness, shortness of breath, chest pain, abdominal pain, nausea, vomiting, diarrhea, dysuria. Objective - Vital Signs/Intake and Output Vital Signs (last 24 hours): Temp Pulse Resp BP Pulse Ox 98.6 F 71 20 147/74 97 06/26/18 08:00 06/26/18 08:00 06/26/18 08:00 06/26/18 09:58 06/26/18 08:00 Intake and Output: 06/26/18 06/26/18 06:59 18:59 Intake Total 580 Balance 580 - Medications Medications: Current Medications Amlodipine Besylate (Norvasc) 10 mg PO DAILY [facility] Last Admin: 06/26/18 09:58 Dose: 10 mg Aspirin (Aspirin Chewable) 81 mg PO DAILY [facility] Last Admin: 06/26/18 09:58 Dose: 81 mg Calcitriol (Rocaltrol) 0.25 mcg PO DAILY [facility] Last Admin: 06/26/18 09:57 Dose: 0.25 mcg Calcium Acetate (Phoslo) 667 mg PO TID [facility] Last Admin: 06/26/18 13:35 Dose: 667 mg Carvedilol (Coreg) 25 mg PO BID [facility] Last Admin: 06/26/18 09:58 Dose: 25 mg Dextrose (Dextrose 50% Inj) 0 ml IV STAT PRN; Protocol PRN Reason: Hypoglycemia Protocol Dextrose (Glutose 15) 0 gm PO ONCE PRN; Protocol PRN Reason: Hypoglycemia Protocol Epoetin Rocael (Procrit) 10,000 unit IV MWF [facility] Last Admin: 06/25/18 11:04 Dose: 10,000 unit Glucagon (Glucagen Diagnostic Kit) 0 mg IM STAT PRN; Protocol PRN Reason: Hypoglycemia Protocol Heparin Sodium (Porcine) (Heparin) 5,000 units SC Q12 [facility] Last Admin: 06/26/18 09:59 Dose: 5,000 units Dextrose (Dextrose 5% In Water 1000 Ml) 1,000 mls @ 0 mls/hr IV .Q0M PRN; Protocol PRN Reason: Hypoglycemia Protocol Ferric Sodium Gluconate Complex 125 mg/ Sodium Chloride 110 mls @ 100 mls/hr IVPB Q24H [facility] Stop: 06/29/18 11:01 Last Admin: 06/26/18 12:00 Dose: 100 mls/hr Insulin Glargine (Lantus) 6 unit SC HS [facility] Last Admin: 06/25/18 21:28 Dose: 6 units Insulin Human Regular (Novolin R) 0 unit SC [facility]; Protocol Last Admin: 06/26/18 12:24 Dose: 4 units Rosuvastatin Calcium (Crestor) 5 mg PO HS [facility] Last Admin: 06/25/18 21:28 Dose: 5 mg Tamsulosin HCl (Flomax) 0.4 mg PO DAILY [facility] Last Admin: 06/26/18 09:58 Dose: 0.4 mg - Labs Labs: 06/26/18 06:58 06/26/18 06:58 - Additional Findings Additional findings: - Constitutional Appears: Well, Non-toxic, No Acute Distress - Head Exam Head Exam: ATRAUMATIC, NORMOCEPHALIC - Eye Exam Eye Exam: EOMI, Normal appearance, PERRL Pupil Exam: NORMAL ACCOMODATION - ENT Exam ENT Exam: Mucous Membranes Moist - Respiratory Exam Respiratory Exam: Clear to Ausculation Bilateral, NORMAL BREATHING PATTERN. absent: Rales, Rhonchi, Wheezes - Cardiovascular Exam Cardiovascular Exam: REGULAR RHYTHM, +S1, +S2. absent: Gallop, Rubs, Murmur - GI/Abdominal Exam GI & Abdominal Exam: Soft, Normal Bowel Sounds. absent: Tenderness - Extremities Exam Extremities Exam: Normal Capillary Refill Additional comments: peripheral pulses palpable bilaterally (radial, PT) AVF in L arm. Palpable thrill and audible bruit - Neurological Exam Neurological Exam: Alert, Awake, Oriented x3 - Psychiatric Exam Psychiatric exam: Normal Affect, Normal Mood - Skin Skin Exam: Normal Color, Warm Assessment and Plan - Assessment and Plan (Free Text) Assessment: 72yo M with PMH of diabetes mellitus, ESRD on HD MWF, hypertension who was transferred from [facility] for dialysis placement. Pt getting HD, awaiting placement for outpatient HD. Plan: ESRD on HD - calcitrol 0.25mcg PO daily - Calcium carbonate 500mg PO TID - Ferric Sodium 125mg IVPB daily - I/Os, daily weights - awaiting dialysis placement - Nephrology consulted, Dr. Tatum- [facility] appreciated - restarted on MWF schedule - procrit 10,000u IV with dialysis Acute CVA - small lacunar infarct involving the left thalamic pulvinar nucleus seen on MRI - TPA was not given due to unknown last known normal - Echo: EF 60% and LVH - ASA 81mg PO daily - Crestor 5mg PO HS - Out of bed with assistance - Neuro checks q4H - PT DM2 - Lantus 6 units HS - Low Insulin sliding scale - Hypoglycemic protocol - accuchecks ACHS HTN - Carvedilol 25mg PO BID - Norvasc 10mg PO daily Anemia - Hb 7.86, asymptomatic - Ferric Sodium 125mg IVPB daily - f/u FOBT PPX: GI: not indicated at this time DVT: Heparin 5000 SC Q12H Renal Diet Dispo: Awaiting outpatient HD placement Pt seen and case reviewed with Dr. Julien <Hollis Julien - Last Filed: 06/26/18 18:37> Objective - Vital Signs/Intake and Output Vital Signs (last 24 hours): Temp Pulse Resp BP Pulse Ox 98.6 F 77 20 137/72 98 06/26/18 16:00 06/26/18 16:00 06/26/18 16:00 06/26/18 17:29 06/26/18 16:00 Intake and Output: 06/26/18 06/26/18 06:59 18:59 Intake Total 580 Balance 580 - Medications Medications: Current Medications Amlodipine Besylate (Norvasc) 10 mg PO DAILY [facility] Last Admin: 06/26/18 09:58 Dose: 10 mg Aspirin (Aspirin Chewable) 81 mg PO DAILY [facility] Last Admin: 06/26/18 09:58 Dose: 81 mg Calcitriol (Rocaltrol) 0.25 mcg PO DAILY [facility] Last Admin: 06/26/18 09:57 Dose: 0.25 mcg Calcium Acetate (Phoslo) 667 mg PO TID [facility] Last Admin: 06/26/18 17:31 Dose: 667 mg Carvedilol (Coreg) 25 mg PO BID [facility] Last Admin: 06/26/18 17:29 Dose: 25 mg Dextrose (Dextrose 50% Inj) 0 ml IV STAT PRN; Protocol PRN Reason: Hypoglycemia Protocol Dextrose (Glutose 15) 0 gm PO ONCE PRN; Protocol PRN Reason: Hypoglycemia Protocol Epoetin Rocael (Procrit) 10,000 unit IV MWF [facility] Last Admin: 06/25/18 11:04 Dose: 10,000 unit Glucagon (Glucagen Diagnostic Kit) 0 mg IM STAT PRN; Protocol PRN Reason: Hypoglycemia Protocol Heparin Sodium (Porcine) (Heparin) 5,000 units SC Q12 [facility] Last Admin: 06/26/18 09:59 Dose: 5,000 units Dextrose (Dextrose 5% In Water 1000 Ml) 1,000 mls @ 0 mls/hr IV .Q0M PRN; Protocol PRN Reason: Hypoglycemia Protocol Ferric Sodium Gluconate Complex 125 mg/ Sodium Chloride 110 mls @ 100 mls/hr IVPB Q24H [facility] Stop: 06/29/18 11:01 Last Admin: 06/26/18 12:00 Dose: 100 mls/hr Insulin Glargine (Lantus) 6 unit SC HS [facility] Last Admin: 06/25/18 21:28 Dose: 6 units Insulin Human Regular (Novolin R) 0 unit SC ACHS [facility]; Protocol Last Admin: 06/26/18 17:30 Dose: 2 units Rosuvastatin Calcium (Crestor) 5 mg PO HS [facility] Last Admin: 06/25/18 21:28 Dose: 5 mg Tamsulosin HCl (Flomax) 0.4 mg PO DAILY [facility] Last Admin: 06/26/18 09:58 Dose: 0.4 mg - Labs Labs: 06/26/18 06:58 06/26/18 06:58 Attending/Attestation - Attestation I have personally seen and examined this patient.: Yes I have fully participated in the care of the patient.: Yes I have reviewed all pertinent clinical information, including history, physical exam and plan: Yes Notes (Text): 06/26/18 18:35 Medical attending: Patient was seen and examined by me. Agree with the above note by the resident The patient was not in any acute distress when I came and saw him. He is waiting on HD placment at this time. Per discussion with and patient they do not want to go to [facility] and want to go home with homeservices Hollis Julien
[2018-06-26] MEDS: (Lantus) Insulin Glargine, Recombinant SC SCH (21:49)
[2018-06-27 07:19] LABS: BASO % 1.1 % (0.0-2.0); EOS # 0.1 K/uL (0.0-0.7); EOS % 3.2 % (0.0-4.0); HEMOGLOBIN 7.6 g/dL (12.0-18.0); LYMPH # 0.5 K/uL (1.0-4.3); LYMPH % 13.1 % (20.0-40.0); MEAN CELL VOLUME 95.6 fL (80.0-94.0); MEAN CORPUSCULAR HEMOGLOBIN 31.5 pg (27.0-31.0); MEAN CORPUSCULAR HGB CONC 32.9 g/dL (33.0-37.0); MEAN PLATELET VOLUME 7.9 fL (7.2-11.7); MONO # 0.5 K/uL (0.0-0.8); MONO % 11.8 % (0.0-10.0); NEUT # 2.9 K/uL (1.8-7.0); NEUT % 70.8 % (50.0-75.0); NRBC % 0.2 % (0.0-2.0); RBC 2.43 Mil/uL (4.40-5.90); WHITE BLOOD COUNT 4.2 K/uL (4.8-10.8)
[2018-06-27] MEDS: (Novolin R) Insulin Human Regular 100 units/ml vial SC SCH ×4 (08:28→23:41)
[2018-06-27 08:42] LABS: ALB/GLOB RATIO 1.2 (1.0-2.1); ALBUMIN 3.2 g/dL (3.5-5.0); CALCIUM 8.1 mg/dl (8.6-10.4)
[2018-06-27] MEDS: Ferric Sodium Gluconat Complex 125 MG in Sodium Chloride 0.9% 100 ML IVPB SCH (10:19)
[2018-06-27] MEDS: Epoetin Alfa 10,000 unit/ml Dialysis IV SCH (10:28)
--- NOTE | 2018-06-27 14:20 | CP.PCM.PN ---
Subjective - Date & Time of Evaluation Date of Evaluation: 06/27/18 Time of Evaluation: 14:18 - Subjective Subjective: s/p dialysis now- UF 1200ml HTN controlled Hg still 7.6- can consider transfusion next HD no new complaint Objective - Vital Signs/Intake and Output Vital Signs (last 24 hours): Temp Pulse Resp BP Pulse Ox 97.2 F L 65 16 157/67 H 98 06/27/18 13:10 06/27/18 13:10 06/27/18 13:10 06/27/18 13:10 06/27/18 13:10 Intake and Output: 06/27/18 06/27/18 06:59 18:59 Intake Total 450 Output Total 200 Balance 250 - Medications Medications: Current Medications Amlodipine Besylate (Norvasc) 10 mg PO DAILY [facility] Last Admin: 06/27/18 09:20 Dose: Not Given Aspirin (Aspirin Chewable) 81 mg PO DAILY [facility] Last Admin: 06/27/18 09:15 Dose: 81 mg Calcitriol (Rocaltrol) 0.25 mcg PO DAILY [facility] Last Admin: 06/27/18 09:15 Dose: 0.25 mcg Calcium Acetate (Phoslo) 667 mg PO TID [facility] Last Admin: 06/27/18 09:15 Dose: 667 mg Carvedilol (Coreg) 25 mg PO BID [facility] Last Admin: 06/27/18 09:20 Dose: Not Given Dextrose (Dextrose 50% Inj) 0 ml IV STAT PRN; Protocol PRN Reason: Hypoglycemia Protocol Dextrose (Glutose 15) 0 gm PO ONCE PRN; Protocol PRN Reason: Hypoglycemia Protocol Epoetin Rocael (Procrit) 10,000 unit IV MWF [facility] Last Admin: 06/27/18 10:28 Dose: 10,000 unit Glucagon (Glucagen Diagnostic Kit) 0 mg IM STAT PRN; Protocol PRN Reason: Hypoglycemia Protocol Heparin Sodium (Porcine) (Heparin) 5,000 units SC Q12 [facility] Last Admin: 06/27/18 09:14 Dose: 5,000 units Dextrose (Dextrose 5% In Water 1000 Ml) 1,000 mls @ 0 mls/hr IV .Q0M PRN; Protocol PRN Reason: Hypoglycemia Protocol Ferric Sodium Gluconate Complex 125 mg/ Sodium Chloride 110 mls @ 100 mls/hr IVPB Q24H [facility] Stop: 06/29/18 11:01 Last Admin: 06/27/18 10:19 Dose: 100 mls/hr Insulin Glargine (Lantus) 6 unit SC HS [facility] Last Admin: 06/26/18 21:49 Dose: 6 units Insulin Human Regular (Novolin R) 0 unit SC ACHS [facility]; Protocol Last Admin: 06/27/18 12:03 Dose: Not Given Rosuvastatin Calcium (Crestor) 5 mg PO HS [facility] Last Admin: 06/26/18 21:49 Dose: 5 mg Tamsulosin HCl (Flomax) 0.4 mg PO DAILY [facility] Last Admin: 06/27/18 09:14 Dose: 0.4 mg - Labs Labs: 06/27/18 07:10 06/27/18 07:10 - Constitutional Appears: No Acute Distress, Chronically Ill - Head Exam Head Exam: ATRAUMATIC, NORMAL INSPECTION - Eye Exam Eye Exam: EOMI, Normal appearance - Neck Exam Neck Exam: Normal Inspection. absent: Tenderness - Respiratory Exam Respiratory Exam: Clear to Ausculation Bilateral, NORMAL BREATHING PATTERN - Cardiovascular Exam Cardiovascular Exam: REGULAR RHYTHM, +S1 - GI/Abdominal Exam GI & Abdominal Exam: Soft. absent: Tenderness - Extremities Exam Extremities Exam: Normal Inspection. absent: Tenderness - Neurological Exam Neurological Exam: Awake, CN II-XII Intact - Skin Skin Exam: Dry, Warm Assessment and Plan (1) End stage renal disease Status: Acute (2) Type 2 diabetes mellitus with diabetic nephropathy Status: Acute (3) Hypertensive chronic kidney disease with stage 5 chronic kidney disease or end stage renal disease Status: Acute (4) CVA (cerebral vascular accident) Status: Acute (5) Prostate CA Status: Acute - Assessment and Plan (Free Text) Plan: dialysis MWF EPO, IV Fe Await outpatient HD placement
--- NOTE | 2018-06-27 15:03 | CP.PCM.PN ---
<Richard Quinn - Last Filed: 06/27/18 15:55> Subjective - Date & Time of Evaluation Date of Evaluation: 06/27/18 Time of Evaluation: 15:00 - Subjective Subjective: PGY-[address] Julien Patient seen and examined at bedside. No acute events overnight. Patient has no acute complaints. He has been having BMs and does still make urine without dysuria. Patient denies chest pain, dizziness, headache, fatigue, shortness of breath. Spoke with CM today- patient does not have outpatient placement yet, although they are working with [facility] and he should hopefully have a spot for this coming Saturday, making him a possible discharge over the weekend. Objective - Vital Signs/Intake and Output Vital Signs (last 24 hours): Temp Pulse Resp BP Pulse Ox 97.2 F L 65 16 160/70 H 98 06/27/18 13:10 06/27/18 13:10 06/27/18 13:10 06/27/18 14:27 06/27/18 13:10 Intake and Output: 06/27/18 06/27/18 06:59 18:59 Intake Total 450 Output Total 200 Balance 250 - Medications Medications: Current Medications Amlodipine Besylate (Norvasc) 10 mg PO DAILY [facility] Last Admin: 06/27/18 14:28 Dose: 10 mg Aspirin (Aspirin Chewable) 81 mg PO DAILY [facility] Last Admin: 06/27/18 09:15 Dose: 81 mg Calcitriol (Rocaltrol) 0.25 mcg PO DAILY [facility] Last Admin: 06/27/18 09:15 Dose: 0.25 mcg Calcium Acetate (Phoslo) 667 mg PO TID [facility] Last Admin: 06/27/18 14:28 Dose: 667 mg Carvedilol (Coreg) 25 mg PO BID [facility] Last Admin: 06/27/18 14:27 Dose: 25 mg Dextrose (Dextrose 50% Inj) 0 ml IV STAT PRN; Protocol PRN Reason: Hypoglycemia Protocol Dextrose (Glutose 15) 0 gm PO ONCE PRN; Protocol PRN Reason: Hypoglycemia Protocol Epoetin Rocael (Procrit) 10,000 unit IV MWF [facility] Last Admin: 06/27/18 10:28 Dose: 10,000 unit Glucagon (Glucagen Diagnostic Kit) 0 mg IM STAT PRN; Protocol PRN Reason: Hypoglycemia Protocol Heparin Sodium (Porcine) (Heparin) 5,000 units SC Q12 [facility] Last Admin: 06/27/18 09:14 Dose: 5,000 units Dextrose (Dextrose 5% In Water 1000 Ml) 1,000 mls @ 0 mls/hr IV .Q0M PRN; Protocol PRN Reason: Hypoglycemia Protocol Ferric Sodium Gluconate Complex 125 mg/ Sodium Chloride 110 mls @ 100 mls/hr IVPB Q24H [facility] Stop: 06/29/18 11:01 Last Admin: 06/27/18 10:19 Dose: 100 mls/hr Insulin Glargine (Lantus) 6 unit SC HS [facility] Last Admin: 06/26/18 21:49 Dose: 6 units Insulin Human Regular (Novolin R) 0 unit SC ACHS [facility]; Protocol Last Admin: 06/27/18 12:03 Dose: Not Given Rosuvastatin Calcium (Crestor) 5 mg PO HS [facility] Last Admin: 06/26/18 21:49 Dose: 5 mg Tamsulosin HCl (Flomax) 0.4 mg PO DAILY [facility] Last Admin: 06/27/18 09:14 Dose: 0.4 mg - Labs Labs: 06/27/18 07:10 06/27/18 07:10 - Constitutional Appears: Non-toxic, No Acute Distress - Head Exam Head Exam: NORMAL INSPECTION, NORMOCEPHALIC - Eye Exam Eye Exam: EOMI, Normal appearance - ENT Exam ENT Exam: Mucous Membranes Moist - Respiratory Exam Respiratory Exam: Clear to Ausculation Bilateral, NORMAL BREATHING PATTERN. absent: Rales, Rhonchi, Wheezes - Cardiovascular Exam Cardiovascular Exam: REGULAR RHYTHM, +S1, +S2 - GI/Abdominal Exam GI & Abdominal Exam: Soft. absent: Tenderness - Extremities Exam Extremities Exam: absent: Pedal Edema, Tenderness Additional comments: peripheral pulses palpable bilaterally AVF in L arm. Palpable thrill and audible bruit - Neurological Exam Neurological Exam: Alert, Awake, Oriented x3 - Psychiatric Exam Psychiatric exam: Normal Affect, Normal Mood - Skin Skin Exam: Dry, Intact, Normal Color Assessment and Plan - Assessment and Plan (Free Text) Assessment: 72yo M with PMH of diabetes mellitus, ESRD on HD MWF, hypertension who was transferred from [facility] for dialysis placement. Pt getting HD, awaiting placement for outpatient HD. Plan: ESRD on HD - calcitrol 0.25mcg PO daily - Calcium carbonate 500mg PO TID - Ferric Sodium 125mg IVPB daily - I/Os, daily weights - awaiting dialysis placement - Nephrology consulted, Dr. Tatum- recs appreciated - restarted on MWF schedule - procrit 10,000u IV with dialysis Acute CVA - small lacunar infarct involving the left thalamic pulvinar nucleus seen on MRI - TPA was not given due to unknown last known normal - Echo: EF 60% and LVH - ASA 81mg PO daily - Crestor 5mg PO HS - Out of bed with assistance - Neuro checks q4H - PT DM2 - Lantus 6 units HS - Low Insulin sliding scale - Hypoglycemic protocol - accuchecks ACHS HTN - Carvedilol 25mg PO BID - Norvasc 10mg PO daily Anemia - Hb 7.86, asymptomatic - Ferric Sodium 125mg IVPB daily - FOBT negative 06/25 PPX: GI: not indicated at this time DVT: Heparin 5000 SC Q12H Renal Diet Dispo: Awaiting outpatient HD placement Pt seen and case reviewed with Dr. Julien <Hollis Julien - Last Filed: 06/27/18 16:08> Objective - Vital Signs/Intake and Output Vital Signs (last 24 hours): Temp Pulse Resp BP Pulse Ox 98.5 F 74 20 150/85 97 06/27/18 15:30 06/27/18 15:30 06/27/18 15:30 06/27/18 15:30 06/27/18 15:30 Intake and Output: 06/27/18 06/27/18 06:59 18:59 Intake Total 450 Output Total 200 Balance 250 - Medications Medications: Current Medications Amlodipine Besylate (Norvasc) 10 mg PO DAILY [facility] Last Admin: 06/27/18 14:28 Dose: 10 mg Aspirin (Aspirin Chewable) 81 mg PO DAILY [facility] Last Admin: 06/27/18 09:15 Dose: 81 mg Calcitriol (Rocaltrol) 0.25 mcg PO DAILY [facility] Last Admin: 06/27/18 09:15 Dose: 0.25 mcg Calcium Acetate (Phoslo) 667 mg PO TID [facility] Last Admin: 06/27/18 14:28 Dose: 667 mg Carvedilol (Coreg) 25 mg PO BID [facility] Last Admin: 06/27/18 14:27 Dose: 25 mg Dextrose (Dextrose 50% Inj) 0 ml IV STAT PRN; Protocol PRN Reason: Hypoglycemia Protocol Dextrose (Glutose 15) 0 gm PO ONCE PRN; Protocol PRN Reason: Hypoglycemia Protocol Epoetin Rocael (Procrit) 10,000 unit IV MWF [facility] Last Admin: 06/27/18 10:28 Dose: 10,000 unit Glucagon (Glucagen Diagnostic Kit) 0 mg IM STAT PRN; Protocol PRN Reason: Hypoglycemia Protocol Heparin Sodium (Porcine) (Heparin) 5,000 units SC Q12 [facility] Last Admin: 06/27/18 09:14 Dose: 5,000 units Dextrose (Dextrose 5% In Water 1000 Ml) 1,000 mls @ 0 mls/hr IV .Q0M PRN; Protocol PRN Reason: Hypoglycemia Protocol Ferric Sodium Gluconate Complex 125 mg/ Sodium Chloride 110 mls @ 100 mls/hr IVPB Q24H [facility] Stop: 06/29/18 11:01 Last Admin: 06/27/18 10:19 Dose: 100 mls/hr Insulin Glargine (Lantus) 6 unit SC [facility] Last Admin: 06/26/18 21:49 Dose: 6 units Insulin Human Regular (Novolin R) 0 unit SC ACHS [facility]; Protocol Last Admin: 06/27/18 12:03 Dose: Not Given Rosuvastatin Calcium (Crestor) 5 mg PO HS [facility] Last Admin: 06/26/18 21:49 Dose: 5 mg Tamsulosin HCl (Flomax) 0.4 mg PO DAILY [facility] Last Admin: 06/27/18 09:14 Dose: 0.4 mg - Labs Labs: 06/27/18 07:10 06/27/18 07:10 Attending/Attestation - Attestation I have personally seen and examined this patient.: Yes I have fully participated in the care of the patient.: Yes I have reviewed all pertinent clinical information, including history, physical exam and plan: Yes Notes (Text): 06/27/18 16:05 Medical attending: Patient was seen and examined by me. Agree with the above note by the resident The patient was not in any acute distress when I came and saw. He had another HD today and did really well. As of this afternoon we are still pending confirmation of outpatient HD, they are hoping by tonight - if so I explained to the patient and family that he may be discharged tommorow or Saturday Hollis Julien
[2018-06-27] MEDS: (Lantus) Insulin Glargine, Recombinant SC SCH (21:44)
[2018-06-28 08:00] LABS: BASO # 0.1 K/uL (0.0-0.2); BASO % 1.3 % (0.0-2.0); EOS # 0.1 K/uL (0.0-0.7); EOS % 3.2 % (0.0-4.0); HEMOGLOBIN 8.1 g/dL (12.0-18.0); LYMPH # 0.6 K/uL (1.0-4.3); LYMPH % 12.3 % (20.0-40.0); MEAN CELL VOLUME 96.4 fL (80.0-94.0); MEAN CORPUSCULAR HEMOGLOBIN 31.5 pg (27.0-31.0); MEAN CORPUSCULAR HGB CONC 32.7 g/dL (33.0-37.0); MEAN PLATELET VOLUME 8.4 fL (7.2-11.7); MONO # 0.5 K/uL (0.0-0.8); MONO % 10.9 % (0.0-10.0); NEUT # 3.3 K/uL (1.8-7.0); NEUT % 72.3 % (50.0-75.0); NRBC % 0.3 % (0.0-2.0); RBC 2.59 Mil/uL (4.40-5.90); RED CELL DISTRIBUTION WIDTH 20.1 % (11.5-14.5); WHITE BLOOD COUNT 4.6 K/uL (4.8-10.8)
[2018-06-28] MEDS: (Novolin R) Insulin Human Regular 100 units/ml vial SC SCH ×4 (08:21→21:53)
[2018-06-28 08:23] LABS: ALB/GLOB RATIO 1.2 (1.0-2.1); ALBUMIN 3.3 g/dL (3.5-5.0); CALCIUM 7.8 mg/dl (8.6-10.4)
[2018-06-28] MEDS: Ferric Sodium Gluconat Complex 125 MG in Sodium Chloride 0.9% 100 ML IVPB SCH (10:51)
--- NOTE | 2018-06-28 12:04 | CP.PCM.PN ---
Subjective - Date & Time of Evaluation Date of Evaluation: 06/28/18 Time of Evaluation: 12:03 - Subjective Subjective: no distress on iv iron no fever no chills no rash no sob no cough no headache Objective - Vital Signs/Intake and Output Vital Signs (last 24 hours): Temp Pulse Resp BP Pulse Ox 98.1 F 65 20 146/79 96 06/28/18 07:00 06/28/18 07:00 06/28/18 07:00 06/28/18 10:51 06/28/18 07:00 Intake and Output: 06/28/18 06/28/18 06:59 18:59 Intake Total 660 Output Total 550 Balance 110 - Medications Medications: Current Medications Amlodipine Besylate (Norvasc) 10 mg PO DAILY [facility] Last Admin: 06/28/18 10:51 Dose: 10 mg Aspirin (Aspirin Chewable) 81 mg PO DAILY [facility] Last Admin: 06/28/18 10:51 Dose: 81 mg Calcitriol (Rocaltrol) 0.25 mcg PO DAILY [facility] Last Admin: 06/28/18 10:51 Dose: 0.25 mcg Calcium Acetate (Phoslo) 667 mg PO TID [facility] Last Admin: 06/28/18 10:51 Dose: 667 mg Carvedilol (Coreg) 25 mg PO BID [facility] Last Admin: 06/28/18 10:51 Dose: 25 mg Dextrose (Dextrose 50% Inj) 0 ml IV STAT PRN; Protocol PRN Reason: Hypoglycemia Protocol Dextrose (Glutose 15) 0 gm PO ONCE PRN; Protocol PRN Reason: Hypoglycemia Protocol Epoetin Rocael (Procrit) 10,000 unit IV MWF [facility] Last Admin: 06/27/18 10:28 Dose: 10,000 unit Glucagon (Glucagen Diagnostic Kit) 0 mg IM STAT PRN; Protocol PRN Reason: Hypoglycemia Protocol Ferric Sodium Gluconate Complex 125 mg/ Sodium Chloride 110 mls @ 100 mls/hr IVPB Q24H [facility] Stop: 06/29/18 11:01 Last Admin: 06/28/18 10:51 Dose: 100 mls/hr Insulin Glargine (Lantus) 6 unit SC HS [facility] Last Admin: 06/27/18 21:44 Dose: 6 units Insulin Human Regular (Novolin R) 0 unit SC ACHS [facility]; Protocol Last Admin: 06/28/18 11:26 Dose: 3 units Rosuvastatin Calcium (Crestor) 5 mg PO HS [facility] Last Admin: 06/27/18 21:51 Dose: 5 mg Tamsulosin HCl (Flomax) 0.4 mg PO DAILY [facility] Last Admin: 06/28/18 10:51 Dose: 0.4 mg - Labs Labs: 06/28/18 07:50 06/28/18 07:50 - Constitutional Appears: Non-toxic, No Acute Distress - Head Exam Head Exam: ATRAUMATIC, NORMAL INSPECTION - Eye Exam Eye Exam: EOMI - ENT Exam ENT Exam: Mucous Membranes Moist - Neck Exam Neck Exam: Full ROM. absent: Lymphadenopathy - Respiratory Exam Respiratory Exam: NORMAL BREATHING PATTERN. absent: Accessory Muscle Use - Cardiovascular Exam Cardiovascular Exam: REGULAR RHYTHM. absent: Rubs - Extremities Exam Extremities Exam: absent: Pedal Edema Additional comments: tory with good bruit - Neurological Exam Neurological Exam: Alert, Awake Assessment and Plan - Assessment and Plan (Free Text) Plan: await dialysis placement continue epogen and iron for anemia
--- NOTE | 2018-06-28 14:37 | CP.PCM.PN ---
<Cuong Lozada - Last Filed: 06/28/18 16:29> Subjective - Date & Time of Evaluation Date of Evaluation: 06/28/18 Time of Evaluation: 12:45 - Subjective Subjective: PGY2 Medicine Note for Dr. Julien Patient seen and examined this morning at bedside. No acute events overnight. Patient is currently pending outpatient dialysis placement. The patient and his family do not want the patient to go to [facility] and wish to take him home. Once he has outpatient dialysis established, he will can be discharged home. Patient is currently feeling well and is without any complaints. Objective - Vital Signs/Intake and Output Vital Signs (last 24 hours): Temp Pulse Resp BP Pulse Ox 98.1 F 65 20 146/79 96 06/28/18 07:00 06/28/18 07:00 06/28/18 07:00 06/28/18 10:51 06/28/18 07:00 Intake and Output: 06/28/18 06/28/18 06:59 18:59 Intake Total 660 Output Total 550 Balance 110 - Medications Medications: Current Medications Amlodipine Besylate (Norvasc) 10 mg PO DAILY [facility] Last Admin: 06/28/18 10:51 Dose: 10 mg Aspirin (Aspirin Chewable) 81 mg PO DAILY [facility] Last Admin: 06/28/18 10:51 Dose: 81 mg Calcitriol (Rocaltrol) 0.25 mcg PO DAILY [facility] Last Admin: 06/28/18 10:51 Dose: 0.25 mcg Calcium Acetate (Phoslo) 667 mg PO TID [facility] Last Admin: 06/28/18 14:11 Dose: 667 mg Carvedilol (Coreg) 25 mg PO BID [facility] Last Admin: 06/28/18 10:51 Dose: 25 mg Dextrose (Dextrose 50% Inj) 0 ml IV STAT PRN; Protocol PRN Reason: Hypoglycemia Protocol Dextrose (Glutose 15) 0 gm PO ONCE PRN; Protocol PRN Reason: Hypoglycemia Protocol Epoetin Rocael (Procrit) 10,000 unit IV MWF [facility] Last Admin: 06/27/18 10:28 Dose: 10,000 unit Glucagon (Glucagen Diagnostic Kit) 0 mg IM STAT PRN; Protocol PRN Reason: Hypoglycemia Protocol Ferric Sodium Gluconate Complex 125 mg/ Sodium Chloride 110 mls @ 100 mls/hr IVPB Q24H [facility] Stop: 06/29/18 11:01 Last Admin: 06/28/18 10:51 Dose: 100 mls/hr Insulin Glargine (Lantus) [address] [facility] Last Admin: 06/27/18 21:44 Dose: 6 units Insulin Human Regular (Novolin R) 0 unit SC [facility]; Protocol Last Admin: 06/28/18 11:26 Dose: 3 units Rosuvastatin Calcium (Crestor) 5 mg PO HS [facility] Last Admin: 06/27/18 21:51 Dose: 5 mg Tamsulosin HCl (Flomax) 0.4 mg PO DAILY [facility] Last Admin: 06/28/18 10:51 Dose: 0.4 mg - Labs Labs: 06/28/18 07:50 06/28/18 07:50 - Constitutional Appears: Non-toxic, No Acute Distress - Head Exam Head Exam: ATRAUMATIC, NORMOCEPHALIC - Eye Exam Eye Exam: EOMI, Normal appearance - ENT Exam ENT Exam: Mucous Membranes Moist - Neck Exam Neck Exam: absent: Lymphadenopathy - Respiratory Exam Respiratory Exam: Clear to Ausculation Bilateral, NORMAL BREATHING PATTERN. absent: Accessory Muscle Use, Rales, Rhonchi, Wheezes, Respiratory Distress - Cardiovascular Exam Cardiovascular Exam: REGULAR RHYTHM, +S1, +S2 - GI/Abdominal Exam GI & Abdominal Exam: Normal Bowel Sounds. absent: Distended, Firm, Guarding, Rigid, Tenderness - Extremities Exam Extremities Exam: absent: Calf Tenderness, Pedal Edema Additional comments: peripheral pulses palpable bilaterally. AVF in L arm - Palpable thrill - Neurological Exam Neurological Exam: Alert, Awake, Oriented x3 - Psychiatric Exam Psychiatric exam: Normal Affect, Normal Mood - Skin Skin Exam: Dry, Warm Assessment and Plan - Assessment and Plan (Free Text) Plan: ESRD on HD - Nephrology consulted, Dr. Tatum- [facility] - HD on MWF schedule - procrit 10,000u IV with dialysis - Calcitrol 0.25mcg PO daily - Calcium Acetate 667mg PO TID - Ferric Sodium 125mg IVPB daily - I/Os, daily weights - awaiting dialysis placement Acute CVA - small lacunar infarct involving the left thalamic pulvinar nucleus seen on MRI - TPA was not given due to unknown last known normal - Echo: EF 60% and LVH - Aspirin 81mg PO daily - Crestor 5mg PO HS - Out of bed with assistance - PT Diabetes type 2 - Lantus 6 units HS - Low Insulin sliding scale - Hypoglycemic protocol - accuchecks ACHS Hypertension - Carvedilol 25mg PO BID - Norvasc 10mg PO daily Anemia - Hb 8.1, asymptomatic - Ferric Sodium 125mg IVPB daily - FOBT negative 06/25 PPX: GI: not indicated at this time DVT: Heparin 5000 SC Q12H Renal Diet Dispo: Patient is currently pending outpatient dialysis placement. Patient is currently stable. Patient to be discharged once outpatient dialysis is established. Case discussed with Dr. Anaya Hutchins Neville PGY2 <Hollis Julien H - Last Filed: 06/28/18 17:20> Objective - Vital Signs/Intake and Output Vital Signs (last 24 hours): Temp Pulse Resp BP Pulse Ox 98.6 F 68 20 151/83 H 98 06/28/18 16:00 06/28/18 16:00 06/28/18 16:00 06/28/18 16:00 06/28/18 16:00 Intake and Output: 06/28/18 06/28/18 06:59 18:59 Intake Total 660 600 Output Total 550 Balance 110 600 - Medications Medications: Current Medications Amlodipine Besylate (Norvasc) 10 mg PO DAILY [facility] Last Admin: 06/28/18 10:51 Dose: 10 mg Aspirin (Aspirin Chewable) 81 mg PO DAILY [facility] Last Admin: 06/28/18 10:51 Dose: 81 mg Calcitriol (Rocaltrol) 0.25 mcg PO DAILY [facility] Last Admin: 06/28/18 10:51 Dose: 0.25 mcg Calcium Acetate (Phoslo) 667 mg PO TID [facility] Last Admin: 06/28/18 14:11 Dose: 667 mg Carvedilol (Coreg) 25 mg PO BID [facility] Last Admin: 06/28/18 10:51 Dose: 25 mg Dextrose (Dextrose 50% Inj) 0 ml IV STAT PRN; Protocol PRN Reason: Hypoglycemia Protocol Dextrose (Glutose 15) 0 gm PO ONCE PRN; Protocol PRN Reason: Hypoglycemia Protocol Epoetin Rocael (Procrit) 10,000 unit IV MWF [facility] Last Admin: 06/27/18 10:28 Dose: 10,000 unit Glucagon (Glucagen Diagnostic Kit) 0 mg IM STAT PRN; Protocol PRN Reason: Hypoglycemia Protocol Heparin Sodium (Porcine) (Heparin) 5,000 units SC Q12 [facility] Ferric Sodium Gluconate Complex 125 mg/ Sodium Chloride 110 mls @ 100 mls/hr IVPB Q24H [facility] Stop: 06/29/18 11:01 Last Admin: 06/28/18 10:51 Dose: 100 mls/hr Insulin Glargine (Lantus) 6 unit SC HS [facility] Last Admin: 06/27/18 21:44 Dose: 6 units Insulin Human Regular (Novolin R) 0 unit SC ACHS [facility]; Protocol Last Admin: 06/28/18 11:26 Dose: 3 units Rosuvastatin Calcium (Crestor) 5 mg PO HS [facility] Last Admin: 06/27/18 21:51 Dose: 5 mg Tamsulosin HCl (Flomax) 0.4 mg PO DAILY [facility] Last Admin: 06/28/18 10:51 Dose: 0.4 mg - Labs Labs: 06/28/18 07:50 06/28/18 07:50 Attending/Attestation - Attestation I have personally seen and examined this patient.: Yes I have fully participated in the care of the patient.: Yes I have reviewed all pertinent clinical information, including history, physical exam and plan: Yes Notes (Text): 06/28/18 17:18 Medical attending: Patient was seen and examined by me. Agree with the above note by the resident The patient was not in any acute distress when I came and saw him. at bedside. They both really want to go however we are still pending on outpatient HD placement Hollis Julien
[2018-06-28] MEDS: (Lantus) Insulin Glargine, Recombinant SC SCH (21:53)
[2018-06-29 07:58] LABS: BASO # 0.1 K/uL (0.0-0.2); BASO % 1.2 % (0.0-2.0); EOS # 0.2 K/uL (0.0-0.7); EOS % 3.6 % (0.0-4.0); HEMOGLOBIN 8.1 g/dL (12.0-18.0); LYMPH # 0.5 K/uL (1.0-4.3); LYMPH % 12.7 % (20.0-40.0); MEAN CELL VOLUME 96.5 fL (80.0-94.0); MEAN CORPUSCULAR HEMOGLOBIN 31.9 pg (27.0-31.0); MONO # 0.5 K/uL (0.0-0.8); NEUT % 70.5 % (50.0-75.0); NRBC % 0.3 % (0.0-2.0); RBC 2.53 Mil/uL (4.40-5.90); RED CELL DISTRIBUTION WIDTH 20.2 % (11.5-14.5); WHITE BLOOD COUNT 4.2 K/uL (4.8-10.8)
[2018-06-29] MEDS: (Novolin R) Insulin Human Regular 100 units/ml vial SC SCH ×4 (08:13→21:53)
[2018-06-29 08:34] LABS: ALB/GLOB RATIO 1.2 (1.0-2.1); ALBUMIN 3.2 g/dL (3.5-5.0); CALCIUM 8.3 mg/dl (8.6-10.4)
[2018-06-29] MEDS: Ferric Sodium Gluconat Complex 125 MG in Sodium Chloride 0.9% 100 ML IVPB SCH (10:49)
--- NOTE | 2018-06-29 12:30 | CP.PCM.PN ---
<Cuong Lozada - Last Filed: 06/29/18 13:23> Subjective - Date & Time of Evaluation Date of Evaluation: 06/29/18 Time of Evaluation: 09:00 - Subjective Subjective: PGY2 Medicine Note for Dr. Julien Patient seen and examined this morning at bedside. Patient is still pending outpatient dialysis placement. He is feeling well and has no complaints. Complete ROS negative. Objective - Vital Signs/Intake and Output Vital Signs (last 24 hours): Temp Pulse Resp BP Pulse Ox 97.9 F 68 20 144/84 100 06/29/18 08:00 06/29/18 08:00 06/29/18 08:00 06/29/18 10:50 06/29/18 08:00 Intake and Output: 06/29/18 06/29/18 06:59 18:59 Intake Total 400 Output Total 501 Balance -101 - Medications Medications: Current Medications Amlodipine Besylate (Norvasc) 10 mg PO DAILY [facility] Last Admin: 06/29/18 10:51 Dose: 10 mg Aspirin (Aspirin Chewable) 81 mg PO DAILY [facility] Last Admin: 06/29/18 10:50 Dose: 81 mg Calcitriol (Rocaltrol) 0.25 mcg PO DAILY [facility] Last Admin: 06/29/18 10:53 Dose: 0.25 mcg Calcium Acetate (Phoslo) 667 mg PO TID [facility] Last Admin: 06/29/18 10:50 Dose: 667 mg Carvedilol (Coreg) 25 mg PO BID [facility] Last Admin: 06/29/18 10:50 Dose: 25 mg Dextrose (Dextrose 50% Inj) 0 ml IV STAT PRN; Protocol PRN Reason: Hypoglycemia Protocol Dextrose (Glutose 15) 0 gm PO ONCE PRN; Protocol PRN Reason: Hypoglycemia Protocol Epoetin Rocael (Procrit) 10,000 unit IV MWF [facility] Last Admin: 06/27/18 10:28 Dose: 10,000 unit Glucagon (Glucagen Diagnostic Kit) 0 mg IM STAT PRN; Protocol PRN Reason: Hypoglycemia Protocol Heparin Sodium (Porcine) (Heparin) 5,000 units SC Q12 [facility] Last Admin: 06/29/18 10:51 Dose: 5,000 units Insulin Glargine (Lantus) 6 unit SC HS [facility] Last Admin: 06/28/18 21:53 Dose: 6 units Insulin Human Regular (Novolin R) 0 unit SC ACHS [facility]; Protocol Last Admin: 06/29/18 12:17 Dose: 2 units Rosuvastatin Calcium (Crestor) 5 mg PO HS [facility] Last Admin: 06/28/18 21:52 Dose: 5 mg Tamsulosin HCl (Flomax) 0.4 mg PO DAILY [facility] Last Admin: 06/29/18 10:50 Dose: 0.4 mg - Labs Labs: 06/29/18 07:43 06/29/18 07:43 - Additional Findings Additional findings: - Constitutional Appears: Non-toxic, No Acute Distress - Head Exam Head Exam: ATRAUMATIC, NORMOCEPHALIC - Eye Exam Eye Exam: EOMI, Normal appearance - ENT Exam ENT Exam: Mucous Membranes Moist - Neck Exam Neck Exam: absent: Lymphadenopathy - Respiratory Exam Respiratory Exam: Clear to Ausculation Bilateral, NORMAL BREATHING PATTERN. absent: Accessory Muscle Use, Rales, Rhonchi, Wheezes, Respiratory Distress - Cardiovascular Exam Cardiovascular Exam: REGULAR RHYTHM, +S1, +S2 - GI/Abdominal Exam GI & Abdominal Exam: Normal Bowel Sounds. absent: Distended, Firm, Guarding, Rigid, Tenderness - Extremities Exam Extremities Exam: absent: Calf Tenderness, Pedal Edema Additional comments: peripheral pulses palpable bilaterally. AVF in L arm - Palpable thrill - Neurological Exam Neurological Exam: Alert, Awake, Oriented x3 - Psychiatric Exam Psychiatric exam: Normal Affect, Normal Mood - Skin Skin Exam: Dry, Warm Assessment and Plan - Assessment and Plan (Free Text) Plan: ESRD on HD - Nephrology consulted, Dr. Tatum[facility] - HD on MWF schedule - procrit 10,000u IV with dialysis - Calcitrol 0.25mcg PO daily - Calcium Acetate 667mg PO TID - Ferric Sodium 125mg IVPB daily - I/Os, daily weights - awaiting dialysis placement Acute CVA - small lacunar infarct involving the left thalamic pulvinar nucleus seen on MRI - TPA was not given due to unknown last known normal - Echo: EF 60% and LVH - Aspirin 81mg PO daily - Crestor 5mg PO HS - Out of bed with assistance - PT Diabetes type 2 - Lantus 6 units HS - Low Insulin sliding scale - Hypoglycemic protocol - accuchecks [facility] Hypertension - Carvedilol 25mg PO BID - Norvasc 10mg PO daily Anemia - Hb 8.1, asymptomatic - Ferric Sodium 125mg IVPB daily - FOBT negative 06/25 PPX: GI: not indicated at this time DVT: Heparin 5000 SC Q12H Renal Diet Dispo: Patient is currently pending outpatient dialysis placement. Patient is currently stable and to be discharged once outpatient dialysis is established. Case discussed with Dr. Anaya Lozada PGY2 <Hollis Julien H - Last Filed: 06/29/18 14:21> Objective - Vital Signs/Intake and Output Vital Signs (last 24 hours): Temp Pulse Resp BP Pulse Ox 97.9 F 68 20 144/84 100 06/29/18 08:00 06/29/18 08:00 06/29/18 08:00 06/29/18 10:50 06/29/18 08:00 Intake and Output: 06/29/18 06/29/18 06:59 18:59 Intake Total 400 Output Total 501 Balance -101 - Medications Medications: Current Medications Amlodipine Besylate (Norvasc) 10 mg PO DAILY [facility] Last Admin: 06/29/18 10:51 Dose: 10 mg Aspirin (Aspirin Chewable) 81 mg PO DAILY [facility] Last Admin: 06/29/18 10:50 Dose: 81 mg Calcitriol (Rocaltrol) 0.25 mcg PO DAILY [facility] Last Admin: 06/29/18 10:53 Dose: 0.25 mcg Calcium Acetate (Phoslo) 667 mg PO TID [facility] Last Admin: 06/29/18 10:50 Dose: 667 mg Carvedilol (Coreg) 25 mg PO BID [facility] Last Admin: 06/29/18 10:50 Dose: 25 mg Dextrose (Dextrose 50% Inj) 0 ml IV STAT PRN; Protocol PRN Reason: Hypoglycemia Protocol Dextrose (Glutose 15) 0 gm PO ONCE PRN; Protocol PRN Reason: Hypoglycemia Protocol Epoetin Rocael (Procrit) 10,000 unit IV MWF [facility] Last Admin: 06/27/18 10:28 Dose: 10,000 unit Glucagon (Glucagen Diagnostic Kit) 0 mg IM STAT PRN; Protocol PRN Reason: Hypoglycemia Protocol Heparin Sodium (Porcine) (Heparin) 5,000 units SC Q12 [facility] Last Admin: 06/29/18 10:51 Dose: 5,000 units Insulin Glargine (Lantus) 6 unit SC HS [facility] Last Admin: 06/28/18 21:53 Dose: 6 units Insulin Human Regular (Novolin R) 0 unit SC ACHS [facility]; Protocol Last Admin: 06/29/18 12:17 Dose: 2 units Rosuvastatin Calcium (Crestor) 5 mg PO HS [facility] Last Admin: 06/28/18 21:52 Dose: 5 mg Tamsulosin HCl (Flomax) 0.4 mg PO DAILY [facility] Last Admin: 06/29/18 10:50 Dose: 0.4 mg - Labs Labs: 06/29/18 07:43 06/29/18 07:43 Attending/Attestation - Attestation I have personally seen and examined this patient.: Yes I have fully participated in the care of the patient.: Yes I have reviewed all pertinent clinical information, including history, physical exam and plan: Yes Notes (Text): 06/29/18 14:20 Medical attending: Patient was seen and examined by me. Reviewed the above note by the resident and agree with the above At this moment I do not have anything new to report We are still pending on HD placment. As metioned previously they don't want to go to [facility]
[2018-06-29] MEDS: (Lantus) Insulin Glargine, Recombinant SC SCH (21:54)
[2018-06-30] MEDS: (Novolin R) Insulin Human Regular 100 units/ml vial SC SCH ×3 (07:42→16:52)
[2018-06-30 08:20] LABS: ALB/GLOB RATIO 1.3 (1.0-2.1); ALBUMIN 3.3 g/dL (3.5-5.0); CALCIUM 8.3 mg/dl (8.6-10.4)
[2018-06-30 11:14] LABS: BASO # 0.1 K/uL (0.0-0.2); BASO % 1.3 % (0.0-2.0); EOS # 0.2 K/uL (0.0-0.7); EOS % 3.8 % (0.0-4.0); HEMOGLOBIN 9.3 g/dL (12.0-18.0); LYMPH # 0.7 K/uL (1.0-4.3); LYMPH % 12.6 % (20.0-40.0); MEAN CELL VOLUME 96.9 fL (80.0-94.0); MEAN CORPUSCULAR HEMOGLOBIN 32.1 pg (27.0-31.0); MEAN CORPUSCULAR HGB CONC 33.2 g/dL (33.0-37.0); MEAN PLATELET VOLUME 7.9 fL (7.2-11.7); MONO # 0.6 K/uL (0.0-0.8); MONO % 10.6 % (0.0-10.0); NEUT # 3.8 K/uL (1.8-7.0); NEUT % 71.7 % (50.0-75.0); NRBC % 0.1 % (0.0-2.0); RBC 2.91 Mil/uL (4.40-5.90); RED CELL DISTRIBUTION WIDTH 21.1 % (11.5-14.5); WHITE BLOOD COUNT 5.2 K/uL (4.8-10.8)
--- NOTE | 2018-06-30 13:36 | CP.PCM.DIS ---
Provider - Provider Date of Admission: 06/19/18 14:28 Attending physician: Victorina Rob MD Consults: 06/19/18 15:10 Nephrology Consult Routine Comment: Consulting Provider: Jorge Luis Tatum Consulting Physician: Jorge Luis Tatum Reason for Consult: ESRD on HD Time Spent in preparation of Discharge (in minutes): 70 Hospital Course - Lab Results Lab Results: Most Recent Lab Values WBC 5.2 K/uL (4.8-10.8) 06/30/18 11:07 RBC 2.91 Mil/uL (4.40-5.90) L 06/30/18 11:07 Hgb 9.3 g/dL (12.0-18.0) L 06/30/18 11:07 Hct 28.2 % (35.0-51.0) L 06/30/18 11:07 MCV 96.9 fL (80.0-94.0) H 06/30/18 11:07 MCH 32.1 pg (27.0-31.0) H 06/30/18 11:07 MCHC 33.2 g/dL (33.0-37.0) 06/30/18 11:07 RDW 21.1 % (11.5-14.5) H 06/30/18 11:07 Plt Count 155 K/uL (130-400) 06/30/18 11:07 MPV 7.9 fL (7.2-11.7) 06/30/18 11:07 Neut % (Auto) 71.7 % (50.0-75.0) 06/30/18 11:07 Lymph % (Auto) 12.6 % (20.0-40.0) L 06/30/18 11:07 Hopkins % (Auto) 10.6 % (0.0-10.0) H 06/30/18 11:07 Eos % (Auto) 3.8 % (0.0-4.0) 06/30/18 11:07 Baso % (Auto) 1.3 % (0.0-2.0) 06/30/18 11:07 Neut # (Auto) 3.8 K/uL (1.8-7.0) 06/30/18 11:07 Lymph # (Auto) 0.7 K/uL (1.0-4.3) L 06/30/18 11:07 Hopkins # (Auto) 0.6 K/uL (0.0-0.8) 06/30/18 11:07 Eos # (Auto) 0.2 K/uL (0.0-0.7) 06/30/18 11:07 Baso # (Auto) 0.1 K/uL (0.0-0.2) 06/30/18 11:07 Sodium 135 mmol/L (132-148) 06/30/18 06:58 Potassium 5.1 mmol/L (3.6-5.2) 06/30/18 06:58 Chloride 98 mmol/L (98-107) 06/30/18 06:58 Carbon Dioxide 27 mmol/L (22-30) 06/30/18 06:58 Anion Gap 15 (10-20) 06/30/18 06:58 BUN 59 mg/dL (9-20) H 06/30/18 06:58 Creatinine 10.0 mg/dL (0.8-1.5) H* D 06/30/18 06:58 Est GFR ( Amer) 6 06/30/18 06:58 Est GFR (Non-Af Amer) 5 06/30/18 06:58 POC Glucose (mg/dL) 197 mg/dL (65-110) H 06/30/18 11:15 Random Glucose 137 mg/dL (75-110) H D 06/30/18 06:58 Calcium 8.3 mg/dl (8.6-10.4) L 06/30/18 06:58 Phosphorus 3.1 mg/dL (2.5-4.5) 06/28/18 07:50 Magnesium 2.1 mg/dL (1.6-2.3) 06/28/18 07:50 % Saturation 7 (20-55) L 06/20/18 15:18 Ferritin 101.0 ng/mL 06/20/18 15:18 Total Bilirubin 0.3 mg/dL (0.2-1.3) 06/30/18 06:58 AST 21 U/L (17-59) 06/30/18 06:58 ALT 32 U/L (21-72) 06/30/18 06:58 Alkaline Phosphatase 36 U/L (38-126) L 06/30/18 06:58 Total Protein 5.9 g/dL (6.3-8.3) L 06/30/18 06:58 Albumin 3.3 g/dL (3.5-5.0) L 06/30/18 06:58 Globulin 2.6 gm/dL (2.2-3.9) 06/30/18 06:58 Albumin/Globulin Ratio 1.3 (1.0-2.1) 06/30/18 06:58 PTH Intact Whole Molec 408 pg/mL (14-64) H 06/20/18 15:18 Stool Occult Blood Negative (NEGATIVE) 06/25/18 08:29 Hep Bs Antigen Negative (NEGATIVE) 06/20/18 15:18 Hep Bs Antibody Negative (NEGATIVE) 06/20/18 15:18 Hep B Core IgM Ab Negative (NEGATIVE) 06/20/18 15:18 Hepatitis C Antibody Negative (NEGATIVE) 06/20/18 15:30 - Hospital Course Hospital Course: Upon Admission: Patient is a 72 year old male with past medical history of ESRD on HD MWF, diabetes mellitus, hypertension who presented to the hospital for admission from [facility] for dialysis placement. Patient was admitted to [facility] on June 10 for altered mental status in the setting of uremia, hypertensive urgency and hyperkalemia. Patient also was found to have a lacunar stroke. Patient was started on HD during his admission and will need hemodialysis placement. Currently he is doing well, offers no complaints at this time. Denies headaches, dizziness, cp, palpitations, sob, abdominal pain, urinary symptoms, changes in bowel habit. Pt was found to be in acute on chronic renal failure, and was admitted for emergent hemodialysis. Hospital Course: Nephrology was consulted and placed pt on a [facility] HD schedule. Pt tolerated HD well. Pt was given IV iron infusions, and restarted on home calictriol, calcium carbonate. Pt was also started on procrit. BUN and Cr improved as patient received HD sessions and pt was deemed stable for discharge. Upon Discharge: Pt was instructed to follow up with his PMD and Nephrology, Dr. Tatum. Pt was found a place for HD as an outpatient. Pt was instructed to take medications as prescribed. Pt understood instructions and agreed. Discharge Exam - Head Exam Head Exam: ATRAUMATIC, NORMOCEPHALIC - Eye Exam Eye Exam: EOMI, PERRL Pupil Exam: NORMAL ACCOMODATION - Respiratory Exam Respiratory Exam: Clear to PA & Lateral, NORMAL BREATHING PATTERN. absent: Rales, Rhonchi, Wheezes - Cardiovascular Exam Cardiovascular Exam: REGULAR RHYTHM, +S1, +S2. absent: Gallop, Rubs, Systolic Murmur - GI/Abdominal Exam GI & Abdominal Exam: Normal Bowel Sounds, Soft. absent: Distended, Tenderness - Neurological Exam Neurological exam: Alert, Oriented x3 Additional comments: AVF with palpable thrill - Psychiatric Exam Psychiatric exam: Normal Affect, Normal Mood - Skin Skin Exam: Dry Discharge Plan - Discharge Medications Prescriptions: amLODIPine [Norvasc] 10 mg PO DAILY #30 tab Aspirin [Ecotrin] 81 mg PO DAILY #30 tabec Calcitriol [Rocaltrol] 0.25 mcg PO DAILY #30 sgl Calcium Acetate [Phoslo] 667 mg PO TID #90 tab Carvedilol [Coreg] 25 mg PO BID #60 tab GlipiZIDE [Glucotrol] 10 mg PO BID #60 tab Insulin Glargine, Recombina [Lantus] 6 unit SC HS 30 Days unit Rosuvastatin Calcium [Crestor] 5 mg PO HS #30 tab Sodium Bicarbonate 0.5 tab PO BID #60 tablet Tamsulosin [Flomax] 0.4 mg PO DAILY #30 cap - Follow Up Plan Condition: GOOD Disposition: HOME/ ROUTINE Additional Instructions: Please follow up with your primary doctor within 7 days. Please follow up with Dr. Tatum, nephrology within 7 days. Please call to make an appointment. Please take your medication as prescribed. If symptoms return, please return to the emergency department. Take care and be well.
--- NOTE | 2018-06-30 14:13 | CP.PCM.PN ---
Subjective - Date & Time of Evaluation Date of Evaluation: 06/30/18 Time of Evaluation: 14:12 - Subjective Subjective: seen and examined no events no complaints no f/c/sob/dizziness/cp/n/v/d Objective - Vital Signs/Intake and Output Vital Signs (last 24 hours): Temp Pulse Resp BP Pulse Ox 97.8 F 69 20 155/71 H 98 06/30/18 07:43 06/30/18 07:43 06/30/18 07:43 06/30/18 07:43 06/30/18 07:43 Intake and Output: 06/30/18 06/30/18 06:59 18:59 Intake Total 450 Output Total 400 Balance 50 - Medications Medications: Current Medications Amlodipine Besylate (Norvasc) 10 mg PO DAILY [facility] Last Admin: 06/30/18 09:50 Dose: Not Given Aspirin (Aspirin Chewable) 81 mg PO DAILY [facility] Last Admin: 06/30/18 09:50 Dose: Not Given Calcitriol (Rocaltrol) 0.25 mcg PO DAILY [facility] Last Admin: 06/30/18 09:49 Dose: 0.25 mcg Calcium Acetate (Phoslo) 667 mg PO TID [facility] Last Admin: 06/30/18 09:49 Dose: 667 mg Carvedilol (Coreg) 25 mg PO BID [facility] Last Admin: 06/30/18 09:50 Dose: Not Given Dextrose (Dextrose 50% Inj) 0 ml IV STAT PRN; Protocol PRN Reason: Hypoglycemia Protocol Dextrose (Glutose 15) 0 gm PO ONCE PRN; Protocol PRN Reason: Hypoglycemia Protocol Epoetin Rocael (Procrit) 10,000 unit IV MWF [facility] Last Admin: 06/27/18 10:28 Dose: 10,000 unit Glucagon (Glucagen Diagnostic Kit) 0 mg IM STAT PRN; Protocol PRN Reason: Hypoglycemia Protocol Heparin Sodium (Porcine) (Heparin) 5,000 units SC Q12 [facility] Last Admin: 06/30/18 09:52 Dose: 5,000 units Insulin Glargine (Lantus) 6 unit SC HS [facility] Last Admin: 06/29/18 21:54 Dose: 6 units Insulin Human Regular (Novolin R) 0 unit SC ACHS [facility]; Protocol Last Admin: 06/30/18 12:02 Dose: 1 units Rosuvastatin Calcium (Crestor) 5 mg PO HS [facility] Last Admin: 06/29/18 21:55 Dose: 5 mg Tamsulosin HCl (Flomax) 0.4 mg PO DAILY [facility] Last Admin: 06/30/18 09:49 Dose: 0.4 mg - Labs Labs: 06/30/18 11:07 06/30/18 06:58 - Constitutional Appears: No Acute Distress, Chronically Ill - Head Exam Head Exam: NORMAL INSPECTION, NORMOCEPHALIC - Eye Exam Eye Exam: Normal appearance, PERRL - ENT Exam ENT Exam: Mucous Membranes Moist, Normal Exam - Neck Exam Neck Exam: Full ROM, Normal Inspection - Respiratory Exam Respiratory Exam: Decreased Breath Sounds, NORMAL BREATHING PATTERN - Cardiovascular Exam Cardiovascular Exam: REGULAR RHYTHM, RRR - GI/Abdominal Exam GI & Abdominal Exam: Distended, Soft - Extremities Exam Extremities Exam: Full ROM, Normal Inspection - Neurological Exam Neurological Exam: Alert, Awake - Skin Skin Exam: Dry, Intact Assessment and Plan (1) CVA (cerebral vascular accident) Status: Acute (2) End stage renal disease Status: Acute (3) Hypertensive chronic kidney disease with stage 5 chronic kidney disease or end stage renal disease Status: Acute (4) Type 2 diabetes mellitus with diabetic nephropathy Status: Acute - Assessment and Plan (Free Text) Assessment: hd today and then pt's daughter aware advise dietary fluid and potassium control
[2018-06-30] MEDS: Epoetin Alfa 10,000 unit/ml Dialysis IV SCH ×2 (15:12→18:59)
[2018-06-30 16:44] VITALS: O2SAT 97
[2018-06-30 19:57] VITALS: BP 152/81; PULSE 78; RESP 16; TEMP 97.7
== END 2018-06-30 20:46 | disposition home health service (06) | DRG 682 ==
LOC: C.3T 06-19 14:28
PROVIDERS: ADMIT Internal Medicine; ATTEND Internal Medicine
PROC: 5A1D70Z Performance of Urinary Filtration, Intermittent, Less than 6 Hours Per Day (ICD-10-PCS; principal; 2018-06-20)
PROC: 5A1D70Z Performance of Urinary Filtration, Intermittent, Less than 6 Hours Per Day (ICD-10-PCS; 2018-06-23)
PROC: 5A1D70Z Performance of Urinary Filtration, Intermittent, Less than 6 Hours Per Day (ICD-10-PCS; 2018-06-25)
PROC: B50W1ZZ Plain Radiography of Dialysis Shunt/Fistula using Low Osmolar Contrast (ICD-10-PCS; 2018-06-26)
PROC: 5A1D70Z Performance of Urinary Filtration, Intermittent, Less than 6 Hours Per Day (ICD-10-PCS; 2018-06-27)
PROC: 5A1D70Z Performance of Urinary Filtration, Intermittent, Less than 6 Hours Per Day (ICD-10-PCS; 2018-06-30)
DX: I12.0 Hypertensive chronic kidney disease with stage 5 chronic kidney disease or end stage renal disease (principal); N18.6 End stage renal disease; I63.81 Other cerebral infarction due to occlusion or stenosis of small artery; E11.22 Type 2 diabetes mellitus with diabetic chronic kidney disease; C61 Malignant neoplasm of prostate; E11.21 Type 2 diabetes mellitus with diabetic nephropathy; D64.9 Anemia, unspecified; Z99.2 Dependence on renal dialysis; Z79.4 Long term (current) use of insulin; Z79.82 Long term (current) use of aspirin; Z85.46 Personal history of malignant neoplasm of prostate; Z87.891 Personal history of nicotine dependence

== ENCOUNTER 2018-11-11 13:31 | Emergency (ER) | payer MEDICARE ==
[2018-11-11 13:31] VITALS: BMI 32.3
--- NOTE | 2018-11-11 13:47 | C.PDOC ---
History Of Present Illness 73 year old male with PMHx of HTN, diabetes, and dialysis (Saturday, , Saturday) presents to the ED complaining of left sided chest pressure during dialysis treatment. States the pressure lasted 1-2 minutes, and has since reso lved. Patient is currently asymptomatic in the ED. Reports she received one hour of dialysis. Notes she takes Aspirin daily. Denies any other complaints. Time Seen by Provider: 11/11/18 13:32 Chief Complaint (Nursing): Chest Pain History Per: Patient History/Exam Limitations: no limitations Onset/Duration Of Symptoms: Mins (1-2) Current Symptoms Are (Timing): Gone Quality: Pressure Past Medical History Reviewed: Historical Data, Nursing Documentation, Vital Signs - Medical History PMH: HTN, Chronic Kidney Disease Other Surgeries: Hx of surgery - [facility] (06/19/18) PLAIN RADIOGRAPHY OF DIALYSIS SHUNT USING L [facility]SM CONTRAST (06/19/18) Family History: States: No Known Family Hx - Social History Hx Alcohol Use: No Hx Substance Use: No Review Of Systems Except As Marked, All Systems Reviewed And Found Negative. Constitutional: Negative for: Fever, Chills Cardiovascular: Positive for: Chest Pain. Negative for: Palpitations Respiratory: Negative for: Cough, Shortness of Breath Gastrointestinal: Negative for: Nausea, Abdominal Pain, Diarrhea Physical Exam - Physical Exam Appears: Non-toxic, No Acute Distress Skin: Warm, Dry, Other (AV fistula in left arm ) Head: Normacephalic Eye(s): bilateral: Normal Inspection, PERRL, EOMI Nose: Normal Oral Mucosa: Moist Neck: Supple Chest: Symmetrical, No Tenderness Cardiovascular: Rhythm Regular, No JVD Respiratory: Normal Breath Sounds, No Rhonchi, No Wheezing Gastrointestinal/Abdominal: Soft, No Tenderness Neurological/Psych: Oriented x3, Normal Speech Gait: Steady ED Course And Treatment - Laboratory Results Result Diagrams: 11/11/18 13:58 11/11/18 13:58 ECG: Interpreted By Me, Viewed By Me ECG Rhythm: Sinus Rhythm Interpretation Of ECG: first-degree AV block Rate From EC Against Medical Advice - AMA Patient Left Against Medical Advice: The patient declines admission to the hospital and wishes to leave the Emergency Department. This action is against my medical advice. This decision was made with informed refusal. The patient was told that admission to the hospital is necessary. Explanation of the reasons why were discussed. The risks of leaving were explained to the patient and include, but are not limited to, worsening of known or currently unknown conditions, permanent disab ility and from undiagnosed or untreated conditions. The patient has the capacity to make this informed decision and understands my explanation of the current medical problem and risks of leaving. The patient voluntarily accepts these risks and signed an AMA form documenting our conversation. The patient was given the opportunity to ask questions and reconsider. The patient was encouraged to return to the Emergency Department at any time for further care. Medical Decision Making Medical Decision Making: cp ro acs Plan - EKG - CXR - Bloodwork labs neg cxr neg. pain free. 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 typical pain rquest admission ro acs. pt refuses. explained numrous times about risk. spent extensive time iwth pt and family to explain. signs ama. Disposition - Disposition Referrals: Chandra Pichardo MD [Staff Provider] - Disposition: AGAINST MEDICAL ADVICE Disposition Time: 14:00 Condition: UNKNOWN Additional Instructions: return to any er with worsening. Instructions: Chest Pain (DC), Leaving Against Medical Advice Forms: [employer] (Turkmen) - Clinical Impression Clinical Impression: Chest pain - Scribe Statement The provider has reviewed the documentation as recorded by the Scribe Elba Barrera All medical record entries made by the Scribe were at my direction and personally dictated by me. I have reviewed the chart and agree that the record accurately reflects my personal performance of the history, physical exam, medical decision making, and the department course for this patient. I have also personally directed, reviewed, and agree with the discharge instructions and disposition.
[2018-11-11 14:05] LABS: BASO # 0.1 K/uL (0.0-0.2); EOS # 0.1 K/uL (0.0-0.7); LYMPH # 0.6 K/uL (1.0-4.3); LYMPH % 12.5 % (20.0-40.0); MEAN CORPUSCULAR HEMOGLOBIN 31.6 pg (27.0-31.0); MEAN CORPUSCULAR HGB CONC 34.2 g/dL (33.0-37.0); MEAN PLATELET VOLUME 7.4 fL (7.2-11.7); MONO # 0.6 K/uL (0.0-0.8); MONO % 10.7 % (0.0-10.0); NEUT # 3.8 K/uL (1.8-7.0); NEUT % 73.8 % (50.0-75.0); NRBC % 0.1 % (0.0-2.0); RBC 3.48 Mil/uL (4.40-5.90); WHITE BLOOD COUNT 5.2 K/uL (4.8-10.8)
[2018-11-11 14:11] LABS: INR 1.1; MEAN CELL VOLUME 92.5 fL (80.0-94.0); PARTIAL THROMBOPLASTIN TIME 33.4 SECONDS (21-34); PROTHROMBIN TIME 11.9 SECONDS (9.7-12.2)
--- NOTE | 2018-11-11 14:13 | RAD ---
Date of service: 11/11/2018 PROCEDURE: CHEST RADIOGRAPH, 1 VIEW HISTORY: chest pain COMPARISON: 04/07/2018 FINDINGS: LUNGS: Clear. PLEURA: No pneumothorax or pleural fluid seen. CARDIOVASCULAR: No aortic atherosclerotic calcification present. Normal. OSSEOUS STRUCTURES: No significant abnormalities. VISUALIZED UPPER ABDOMEN: Normal. OTHER FINDINGS: None. IMPRESSION: No active disease.
[2018-11-11 14:36] LABS: GFR NON-AFRICAN AMERICAN 8
[2018-11-11 14:37] LABS: ALB/GLOB RATIO 1.2 (1.0-2.1); ALBUMIN 3.9 g/dL (3.5-5.0); ALT/SGPT 19 U/L (21-72); AST/SGOT 22 U/L (17-59); BLOOD UREA NITROGEN 63 mg/dL (9-20); CALCIUM 8.8 mg/dl (8.6-10.4)
[2018-11-11 14:51] VITALS: BP 183/92; PULSE 66; RESP 12; TEMP 98.1; O2SAT 98
--- NOTE | 2018-11-12 11:56 | CARD ---
APPROVED REPORT Date of service: 11/11/2018 EKG Measurement Heart [id number] <Conclusion> Sinus rhythm with 1st degree AV block Otherwise normal ECG
== END 2018-11-11 15:14 | disposition left against medical advice (07) ==
LOC: C.ER 13:31
DX: R07.9 Chest pain, unspecified (principal)